=== PATIENT | female | born 1950 | race Caucasian/White ===

== ENCOUNTER → 2017-09-10 | Outpatient (CLI) | payer MEDICARE | END | disposition home or self-care (01) | LOC: SHCH 12:55 | PROVIDERS: ATTEND Internal Medicine Cardiovascular Disease | DX: R07.9 Chest pain, unspecified (principal); R78.5 Finding of other psychotropic drug in blood | CPT/HCPCS: 93306 ==

== ENCOUNTER → 2017-09-26 | Outpatient (CLI) | payer MEDICARE ==
[~2017-09-26] MED LIST: REGADENOSON 0.4 MG/5 ML PF SYG IVP SCH
== END | disposition home or self-care (01) ==
LOC: SHCH 08:47
PROVIDERS: ATTEND Internal Medicine Cardiovascular Disease
DX: R07.9 Chest pain, unspecified (principal)
CPT/HCPCS: 78452; 93017; 96374; A9500 ×2; J2785

== ENCOUNTER 2020-04-25 18:46 | Inpatient (IN) | payer MEDICARE ==
[~2020-04-25] VITALS: Ht 157.5 cm; Wt 55.2 kg
[2020-04-25 20:27] LABS: BASOPHILS % (AUTO) 0.1 % (0.0-5.0); HEMATOCRIT 38.8 % (36-48); LYMPHOCYTES % (AUTO) 5.3 % (21.0-51.0); MEAN CORPUSCULAR HEMOGLOBIN 30.3 pg (27.0-33.0); MEAN CORPUSCULAR HGB CONC 34.8 g/dL (32.0-36.0); MONOCYTES % (AUTO) 2.7 % (3.0-13.0); NEUTROPHILS % (AUTO) 90.5 % (40.0-77.0); PLATELET COUNT (AUTO) 133 K/uL (130-400); RED BLOOD CELL COUNT(AUTO) 4.46 MIL/uL (4.00-5.50); RED CELL DISTRIBUTION WIDTH 12.6 % (11.0-15.5); WHITE BLOOD COUNT (AUTO) 7.9 K/uL (4.8-10.8)
[2020-04-25 20:49] LABS: ALBUMIN 3.1 g/dL (3.5-5.0); BILIRUBIN,TOTAL 0.7 mg/dL (0.2-1.0); CREATININE 1.1 mg/dL (0.5-1.5); POTASSIUM 4.7 mmol/L (3.5-5.1); TOTAL PROTEIN, SERUM 8.3 g/dL (6.0-8.3)
[2020-04-25 21:01] LABS: CRP QUANTITATIVE 142.2 mg/L (0.00-9.0)
[2020-04-25] MEDS ORDERED: SODIUM CHLORIDE 0.9% 1000ML 1,000 ML IV SCH (22:15)
[2020-04-25] MEDS ORDERED: ERGOCALCIFEROL (VITAMIN D2) 50,000 UNIT CAPSULE PO ONE (22:15)
[2020-04-25] MEDS ORDERED: DOXYCYCLINE 100MG+NS 250ML IV SCH (22:15)
[2020-04-25] MEDS ORDERED: ONDANSETRON HCL 4 MG/2 ML VIAL IV PRN (22:15)
[2020-04-25] MEDS ORDERED: INSULIN HUMULIN R 100 UNIT/ML 3ML ONE ×2 (22:17→23:48)
[2020-04-25] MEDS ORDERED: DOXYCYCLINE 100MG+NS 250ML 250 ML IV ONE (22:42)
[2020-04-25] MEDS ORDERED: ERGOCALCIFEROL (VITAMIN D2) 50,000 UNIT CAPSULE ONE (22:42)
--- NOTE | 2020-04-26 00:10 | NUR ---
NEW ADMISSION RECEIVED REPORT FROM JENARO ROCK [phone]. Pt ARRIVED AT ROOM 412 VIA STRETCHER. Pt AAOx4. NO TELE PACK ORDERED. Pt IS MED-SURG. BR W/BRP WITH ASSIST IF NEEDED. CALLED RESPIRATORY FOR CONTINUOUS PULSE OXIMETER. Pt IS ON 4L VIA NE. PCR RESULTS PENDING. Pt STATES SHE TESTED POSITIVE ON 04/18/2020 W/ HER PCP. Pt DENIES ANY PAIN, DENIES SOB, STATES SHE FEELS BETTER WITH THE OXYGEN. CALL LIGHT WITHIN REACH. BED TO LOWEST LEVEL, SIDE RAILS UP x2.
[2020-04-26 00:20] VITALS: BP 163/78
[2020-04-26] MEDS ORDERED: METF-444 PO (01:16)
[2020-04-26] MEDS ORDERED: DEXA6TAB PO (01:18)
[2020-04-26] MEDS ORDERED: MV-M1TAB32 PO (01:19)
[2020-04-26] MEDS ORDERED: ZINC50TA64 PO (01:19)
[2020-04-26] MEDS ORDERED: CHOL500051 PO (01:22)
[2020-04-26] MEDS ORDERED: LEVO500T89 PO (01:24)
[2020-04-26] MEDS ORDERED: ROSU20TA31 PO (01:25)
[2020-04-26] MEDS ORDERED: IBUP-2784 PO (01:27)
[2020-04-26] MEDS ORDERED: DEXT15DR29 OP (01:28)
[2020-04-26] MEDS ORDERED: ASCO500W7 PO (01:29)
[2020-04-26] MEDS ORDERED: MAGN250T10 PO (01:31)
[2020-04-26] MEDS ORDERED: GUAI120015 PO (01:32)
[2020-04-26 04:05] VITALS: BP 120/58
[2020-04-26] MEDS: INSULIN HUMULIN R 100 UNIT/ML 3ML SQ SCH ×4 (06:17→20:40)
[2020-04-26 06:22] LABS: BASOPHILS % (AUTO) 0.1 % (0.0-5.0); HEMATOCRIT 37.6 % (36-48); LYMPHOCYTES % (AUTO) 9.1 % (21.0-51.0); MEAN CORPUSCULAR HEMOGLOBIN 30.1 pg (27.0-33.0); MEAN CORPUSCULAR HGB CONC 33.8 g/dL (32.0-36.0); MEAN CORPUSCULAR VOLUME 89.1 fL (79-99); MONOCYTES % (AUTO) 3.8 % (3.0-13.0); NEUTROPHILS % (AUTO) 85.3 % (40.0-77.0); PLATELET COUNT (AUTO) 139 K/uL (130-400); RED BLOOD CELL COUNT(AUTO) 4.22 MIL/uL (4.00-5.50); RED CELL DISTRIBUTION WIDTH 12.9 % (11.0-15.5); WHITE BLOOD COUNT (AUTO) 8.7 K/uL (4.8-10.8)
[2020-04-26 06:49] LABS: LACTATE DEHYDROGENASE 308 U/L (81-234)
[2020-04-26 08:00] VITALS: BP 114/62
[2020-04-26] MEDS: ZINC SULFATE 220 CAPSULE PO SCH (08:10)
[2020-04-26] MEDS: METHYLPREDNISOLONE SOD SUCC 40MG/ML 1ML IVP SCH ×3 (08:10→19:54)
[2020-04-26] MEDS: ASCORBIC ACID 500 MG TAB PO SCH (08:10)
[2020-04-26] MEDS: ENOXAPARIN SODIUM 40 MG/0.4 ML SYRINGE SQ SCH (08:11)
[2020-04-26] MEDS: ACETAMINOPHEN 325 MG TAB PO PRN ×2 (08:12→18:52)
[2020-04-26] MEDS ORDERED: ALBUTEROL INHALER 90MCG/INH IH PRN (08:30)
[2020-04-26] MEDS: DOXYCYCLINE HYCLATE 100 MG TABLET PO SCH ×2 (09:54→19:54)
[2020-04-26] MEDS: ACETYLCYSTEINE 600 MG CAPSULE PO SCH ×2 (09:55→19:54)
[2020-04-26 11:30] VITALS: BP 115/55
[2020-04-26] MEDS ORDERED: PHARMACY COMMUNICATION MISC SCH (13:00)
[2020-04-26] MEDS ORDERED: REMDESIVIR (EUA) 520 200 MG in SODIUM CHLORIDE 0.9% 250 ML IV ONE (15:00)
[2020-04-26] MEDS ORDERED: COMPOUND IV REFRIGERATED 1 EACH IVSOLN MISC PRN (15:00)
--- NOTE | 2020-04-26 15:40 | NUR ---
OSCAR NOTE/IA UNABLE TO SPEAK TO PATIENT IN ROOM, NEXT OF KIN CALLED, ETHAN MathewsTisha CORABERNABE REYNOLDS. PER SON, PATIENT LIVES ALONE, INDEPENDENT WITH ADLS, NO USE OF DME, WORKS, DRIVES, USE OF [facility] ON [address] AND FEELS SAFE FOR PATIENT TO RETURN TO HOME OR WITH HIM OR SISTER ONCE DISCHARGED AND STABLE. Addendum: 04/26/20 at 1735 by ANA M RUDD RN CM Amended: Links added.
[2020-04-26 16:00] VITALS: BP 140/57
[2020-04-26 20:28] VITALS: BP 133/67
[2020-04-27 00:01] VITALS: BP 131/73
--- NOTE | 2020-04-27 02:41 | NUR ---
PLASMA PENDING SPOKE TO CLARITZA AT BLOOD BANK, Pt DOES NOT HAVE A PATIENT CODE. NOTIFIED JENARO DANIEL CHARGE NURSE AND JENARO SALTER CHARGE NURSE. EMELY DIRECTOR OF OCCUPATIONAL HEALTH WILL BE NOTIFIED IN THE MORNING. CONSENT AND [facility] [place] CONSENT WERE SIGNED.
[2020-04-27 04:02] VITALS: BP 129/64
[2020-04-27 04:34] LABS: BASOPHILS % (AUTO) 0.2 % (0.0-5.0); HEMATOCRIT 37.4 % (36-48); LYMPHOCYTES % (AUTO) 7.2 % (21.0-51.0); MEAN CORPUSCULAR HEMOGLOBIN 30.4 pg (27.0-33.0); MEAN CORPUSCULAR HGB CONC 34.5 g/dL (32.0-36.0); MONOCYTES % (AUTO) 2.7 % (3.0-13.0); NEUTROPHILS % (AUTO) 87.9 % (40.0-77.0); PLATELET COUNT (AUTO) 93 K/uL (130-400); RED BLOOD CELL COUNT(AUTO) 4.25 MIL/uL (4.00-5.50); RED CELL DISTRIBUTION WIDTH 12.8 % (11.0-15.5); WHITE BLOOD COUNT (AUTO) 12.1 K/uL (4.8-10.8)
[2020-04-27 04:49] LABS: ALBUMIN 2.5 g/dL (3.5-5.0); BILIRUBIN,DIRECT 0.1 mg/dL (0.0-0.3); BILIRUBIN,TOTAL 0.5 mg/dL (0.2-1.0); CREATININE 0.3 mg/dL (0.5-1.5); CRP QUANTITATIVE 120.1 mg/L (0.00-9.0); TOTAL PROTEIN, SERUM 7.4 g/dL (6.0-8.3)
[2020-04-27] MEDS: PHARMACY COMMUNICATION MISC SCH (06:00)
[2020-04-27] MEDS: INSULIN HUMULIN R 100 UNIT/ML 3ML SQ SCH ×7 (06:16→21:25)
[2020-04-27 08:00] VITALS: BP 135/69
[2020-04-27] MEDS: ASCORBIC ACID 500 MG TAB PO SCH (09:41)
[2020-04-27] MEDS: DOXYCYCLINE HYCLATE 100 MG TABLET PO SCH ×2 (09:41→20:56)
[2020-04-27] MEDS: ENOXAPARIN SODIUM 40 MG/0.4 ML SYRINGE SQ SCH (09:42)
[2020-04-27] MEDS: METHYLPREDNISOLONE SOD SUCC 40MG/ML 1ML IVP SCH ×3 (09:42→20:56)
[2020-04-27] MEDS: ZINC SULFATE 220 CAPSULE PO SCH (09:42)
[2020-04-27] MEDS: ACETYLCYSTEINE 600 MG CAPSULE PO SCH ×2 (10:47→20:56)
[2020-04-27 11:30] VITALS: BP 143/66
[2020-04-27 15:30] VITALS: BP 135/70
[2020-04-27] MEDS: REMDESIVIR (EUA) 520 100 MG in SODIUM CHLORIDE 0.9% 250 ML IV SCH (15:38)
[2020-04-27] MEDS: ACETAMINOPHEN 325 MG TAB PO PRN ×2 (17:47→18:56)
[2020-04-27 20:00] VITALS: BP 138/69
--- NOTE | 2020-04-27 20:00 | NUR ---
assessment note patient awake ,alert, ox3, oxygen at 4 l n/c saturation 93 %, extensive discussion regarding plan of care and expected outcome, patient verbalizes understanding via teach back , patient verbalizes understanding via teach back
[2020-04-27] MEDS: INSULIN GLARGINE 100 UNITS/ML 10 ML VIAL SQ SCH (21:24)
[2020-04-28] VITALS: BP 145/70
[2020-04-28 04:00] VITALS: BP 143/61
[2020-04-28] MEDS: PHARMACY COMMUNICATION MISC SCH (04:28)
[2020-04-28 04:33] LABS: BASOPHILS % (AUTO) 0.2 % (0.0-5.0); HEMATOCRIT 37.2 % (36-48); LYMPHOCYTES % (AUTO) 9.4 % (21.0-51.0); MEAN CORPUSCULAR HEMOGLOBIN 29.8 pg (27.0-33.0); MEAN CORPUSCULAR HGB CONC 34.1 g/dL (32.0-36.0); MEAN CORPUSCULAR VOLUME 87.3 fL (79-99); MONOCYTES % (AUTO) 3.3 % (3.0-13.0); NEUTROPHILS % (AUTO) 84.9 % (40.0-77.0); PLATELET COUNT (AUTO) 45 K/uL (130-400); RED BLOOD CELL COUNT(AUTO) 4.26 MIL/uL (4.00-5.50); RED CELL DISTRIBUTION WIDTH 12.7 % (11.0-15.5); WHITE BLOOD COUNT (AUTO) 10.4 K/uL (4.8-10.8)
[2020-04-28 05:30] LABS: ALBUMIN 2.3 g/dL (3.5-5.0); BILIRUBIN,DIRECT 0.1 mg/dL (0.0-0.3); BILIRUBIN,TOTAL 0.4 mg/dL (0.2-1.0); CREATININE 0.6 mg/dL (0.5-1.5); CRP QUANTITATIVE 59.8 mg/L (0.00-9.0); TOTAL PROTEIN, SERUM 6.9 g/dL (6.0-8.3)
[2020-04-28] MEDS: INSULIN HUMULIN R 100 UNIT/ML 3ML SQ SCH ×7 (06:04→21:34)
[2020-04-28] MEDS: ACETAMINOPHEN 325 MG TAB PO PRN ×2 (06:42→20:22)
[2020-04-28] MEDS: ENOXAPARIN SODIUM 40 MG/0.4 ML SYRINGE SQ SCH (07:12)
[2020-04-28 08:11] VITALS: BP 136/75
[2020-04-28] MEDS: ACETYLCYSTEINE 600 MG CAPSULE PO SCH ×2 (09:00→20:15)
[2020-04-28 09:37] LABS: CREATININE 0.7 mg/dL (0.5-1.5)
[2020-04-28] MEDS: DOXYCYCLINE HYCLATE 100 MG TABLET PO SCH ×2 (10:18→20:15)
[2020-04-28] MEDS: ASCORBIC ACID 500 MG TAB PO SCH (10:18)
[2020-04-28] MEDS: ZINC SULFATE 220 CAPSULE PO SCH (10:18)
[2020-04-28] MEDS: METHYLPREDNISOLONE SOD SUCC 40MG/ML 1ML IVP SCH ×3 (10:21→20:15)
[2020-04-28 12:27] VITALS: BP 132/61
[2020-04-28] MEDS: REMDESIVIR (EUA) 520 100 MG in SODIUM CHLORIDE 0.9% 250 ML IV SCH (16:15)
[2020-04-28 16:43] VITALS: BP 128/68
--- NOTE | 2020-04-28 18:13 | NUR ---
pt stated she feels better today, pt able to amb to bathroom, without getting SOB, pt sao2 remained @ 89-95% today on o2 @ 6L, pt received instructions from RT today, regarding proper use of incentive spirometer, pt verbalized understanding ofhow to use IS. PLAN IS FOR PT TO CONTINUE TO RECEIVE REMDESIVIR and for pt to receive convalescent plasma. once pt is medically stable, pt will be dcd home
[2020-04-28 20:20] VITALS: BP 185/79
--- NOTE | 2020-04-28 21:00 | NUR ---
bs blood sugar by finger stick 407, stat glucose ordered per protocal, result 390, teach patient plan of care and expected outcome, oxygen at 4 l n/c, saturation 97 % at this time,patient verbalizes understanding via teach back
--- NOTE | 2020-04-28 21:15 | NUR ---
plasma 2nd unit of plasma started as ordered via right hand 20 gauge catheter, tolerating well, see transfusion record
--- NOTE | 2020-04-28 21:30 | NUR ---
nursing obs no reaction noted, temp 97.6 f pulse 72 resp 20 b/p 144/90, tolerating well
[2020-04-28] MEDS: INSULIN GLARGINE 100 UNITS/ML 10 ML VIAL SQ SCH (21:35)
--- NOTE | 2020-04-28 22:15 | NUR ---
nursing obs plasma transfusion complete, no reaction noted , tolerated well, see transfusion record
[2020-04-29] MEDS: PHARMACY COMMUNICATION MISC SCH (00:06)
[2020-04-29 00:20] VITALS: BP 145/73
[2020-04-29 04:20] VITALS: BP 149/76
[2020-04-29] MEDS: INSULIN HUMULIN R 100 UNIT/ML 3ML SQ SCH ×7 (05:58→20:54)
[2020-04-29 06:36] LABS: CREATININE 0.7 mg/dL (0.5-1.5); POTASSIUM 3.7 mmol/L (3.5-5.1)
[2020-04-29 06:37] LABS: BASOPHILS % (AUTO) 0.2 % (0.0-5.0); HEMATOCRIT 36.9 % (36-48); LYMPHOCYTES % (AUTO) 9.6 % (21.0-51.0); MEAN CORPUSCULAR HEMOGLOBIN 30.1 pg (27.0-33.0); MEAN CORPUSCULAR HGB CONC 34.1 g/dL (32.0-36.0); MEAN CORPUSCULAR VOLUME 88.3 fL (79-99); MONOCYTES % (AUTO) 2.5 % (3.0-13.0); NEUTROPHILS % (AUTO) 85.2 % (40.0-77.0); RED BLOOD CELL COUNT(AUTO) 4.18 MIL/uL (4.00-5.50); RED CELL DISTRIBUTION WIDTH 12.8 % (11.0-15.5); WHITE BLOOD COUNT (AUTO) 9.1 K/uL (4.8-10.8)
[2020-04-29 07:48] VITALS: BP 152/71
[2020-04-29] MEDS: METHYLPREDNISOLONE SOD SUCC 40MG/ML 1ML IVP SCH ×3 (08:35→20:15)
[2020-04-29] MEDS: ENOXAPARIN SODIUM 40 MG/0.4 ML SYRINGE SQ SCH (08:36)
[2020-04-29] MEDS: ASCORBIC ACID 500 MG TAB PO SCH (08:37)
[2020-04-29] MEDS: DOXYCYCLINE HYCLATE 100 MG TABLET PO SCH ×2 (08:37→20:15)
[2020-04-29] MEDS: ZINC SULFATE 220 CAPSULE PO SCH (08:37)
[2020-04-29] MEDS: ACETYLCYSTEINE 600 MG CAPSULE PO SCH ×2 (08:37→20:20)
[2020-04-29 09:00] LABS: PLATELET COUNT (AUTO) 199 K/uL (130-400)
[2020-04-29 12:02] VITALS: BP 144/69
[2020-04-29] MEDS: REMDESIVIR (EUA) 520 100 MG in SODIUM CHLORIDE 0.9% 250 ML IV SCH (15:17)
[2020-04-29 15:25] VITALS: BP 121/64
[2020-04-29 20:20] VITALS: BP 154/78
[2020-04-29] MEDS: INSULIN GLARGINE 100 UNITS/ML 10 ML VIAL SQ SCH (20:53)
[2020-04-29] MEDS: ACETAMINOPHEN 325 MG TAB PO PRN (20:56)
[2020-04-30 00:20] VITALS: BP 149/59
[2020-04-30 04:20] VITALS: BP 126/60
[2020-04-30] MEDS: PHARMACY COMMUNICATION MISC SCH (06:00)
[2020-04-30] MEDS: INSULIN HUMULIN R 100 UNIT/ML 3ML SQ SCH ×7 (06:07→20:25)
[2020-04-30 06:13] LABS: BASOPHILS % (AUTO) 0.2 % (0.0-5.0); HEMATOCRIT 36.7 % (36-48); MEAN CORPUSCULAR HEMOGLOBIN 29.9 pg (27.0-33.0); MEAN CORPUSCULAR HGB CONC 34.3 g/dL (32.0-36.0); MEAN CORPUSCULAR VOLUME 87.2 fL (79-99); MONOCYTES % (AUTO) 2.1 % (3.0-13.0); NEUTROPHILS % (AUTO) 87.9 % (40.0-77.0); RED BLOOD CELL COUNT(AUTO) 4.21 MIL/uL (4.00-5.50); RED CELL DISTRIBUTION WIDTH 12.7 % (11.0-15.5); WHITE BLOOD COUNT (AUTO) 12.5 K/uL (4.8-10.8)
[2020-04-30 06:19] LABS: PLATELET COUNT (AUTO) 174 K/uL (130-400)
[2020-04-30 06:48] LABS: CREATININE 0.7 mg/dL (0.5-1.5); POTASSIUM 3.4 mmol/L (3.5-5.1)
[2020-04-30 07:46] VITALS: BP 136/65
[2020-04-30] MEDS: ACETYLCYSTEINE 600 MG CAPSULE PO SCH ×2 (09:00→20:23)
[2020-04-30] MEDS: ASCORBIC ACID 500 MG TAB PO SCH (09:02)
[2020-04-30] MEDS: METHYLPREDNISOLONE SOD SUCC 40MG/ML 1ML IVP SCH ×3 (09:02→20:23)
[2020-04-30] MEDS: ZINC SULFATE 220 CAPSULE PO SCH (09:02)
[2020-04-30] MEDS: ENOXAPARIN SODIUM 40 MG/0.4 ML SYRINGE SQ SCH (09:03)
[2020-04-30] MEDS: DOXYCYCLINE HYCLATE 100 MG TABLET PO SCH ×2 (09:03→20:23)
[2020-04-30] MEDS: ACETAMINOPHEN 325 MG TAB PO PRN (09:18)
[2020-04-30 12:00] VITALS: BP 122/65
[2020-04-30] MEDS: REMDESIVIR (EUA) 520 100 MG in SODIUM CHLORIDE 0.9% 250 ML IV SCH (14:35)
[2020-04-30 16:12] VITALS: BP 127/59
[2020-04-30 20:24] VITALS: BP 117/56
[2020-04-30] MEDS: INSULIN GLARGINE 100 UNITS/ML 10 ML VIAL SQ SCH (20:24)
[2020-05-01] VITALS (7 sets, daily range): BP systolic 112–155; BP diastolic 52–73
[2020-05-01] MEDS: ACETAMINOPHEN 325 MG TAB PO PRN ×3 (00:18→14:37)
[2020-05-01] MEDS: PHARMACY COMMUNICATION MISC SCH (05:14)
[2020-05-01] MEDS: INSULIN HUMULIN R 100 UNIT/ML 3ML SQ SCH ×7 (06:43→20:48)
[2020-05-01 06:55] LABS: BASOPHILS % (AUTO) 0.2 % (0.0-5.0); HEMATOCRIT 33.8 % (36-48); MEAN CORPUSCULAR HEMOGLOBIN 30.3 pg (27.0-33.0); MEAN CORPUSCULAR HGB CONC 34.3 g/dL (32.0-36.0); MEAN CORPUSCULAR VOLUME 88.3 fL (79-99); MONOCYTES % (AUTO) 1.6 % (3.0-13.0); NEUTROPHILS % (AUTO) 91.1 % (40.0-77.0); PLATELET COUNT (AUTO) 194 K/uL (130-400); RED BLOOD CELL COUNT(AUTO) 3.83 MIL/uL (4.00-5.50); RED CELL DISTRIBUTION WIDTH 12.9 % (11.0-15.5); WHITE BLOOD COUNT (AUTO) 11.4 K/uL (4.8-10.8)
[2020-05-01 06:58] LABS: CREATININE 0.7 mg/dL (0.5-1.5)
[2020-05-01] MEDS: ASCORBIC ACID 500 MG TAB PO SCH (09:53)
[2020-05-01] MEDS: METHYLPREDNISOLONE SOD SUCC 40MG/ML 1ML IVP SCH ×3 (09:53→20:46)
[2020-05-01] MEDS: DOXYCYCLINE HYCLATE 100 MG TABLET PO SCH ×2 (09:54→20:46)
[2020-05-01] MEDS: ENOXAPARIN SODIUM 40 MG/0.4 ML SYRINGE SQ SCH (09:54)
[2020-05-01] MEDS: ZINC SULFATE 220 CAPSULE PO SCH (09:54)
[2020-05-01] MEDS: ACETYLCYSTEINE 600 MG CAPSULE PO SCH ×2 (11:15→20:46)
--- NOTE | 2020-05-01 11:55 | NUR ---
0810-after returning to bathroom, oxygen probe began alarming sat 80's, rt notified, encouraged deep breathing/cough & incentive spirometer use; up to 85%, labored sitting up high fowlers, rt notified; stated to wait 10 min then call again if no change, [id number] rt for eval, no change in orders; encouraged to pause when speaking, bedside commode instead of too much walking and causing oxygen to decrease. verbalized understanding. 1000-speaking with nurse, and then family right after & o2 sat again began to dip; encouraged a pause, and slow deep breaths, cont pulse ox. 1130-proning per self, o2 sat 94-97% on 6 liters.
--- NOTE | 2020-05-01 17:04 | NUR ---
1500 Patient utilizing bedside commode, urine x1/stool x1, tolerated oxygen decrease better; nad noted, cont pulse ox cont, patient breathing better through nose/mouth, will cont to monitor.
[2020-05-01] MEDS: INSULIN GLARGINE 100 UNITS/ML 10 ML VIAL SQ SCH (20:47)
[2020-05-02 03:49] VITALS: BP 117/55
[2020-05-02 04:46] LABS: BASOPHILS % (AUTO) 0.1 % (0.0-5.0); HEMATOCRIT 36.5 % (36-48); LYMPHOCYTES % (AUTO) 3.5 % (21.0-51.0); MEAN CORPUSCULAR HEMOGLOBIN 30.1 pg (27.0-33.0); MEAN CORPUSCULAR HGB CONC 34.5 g/dL (32.0-36.0); MEAN CORPUSCULAR VOLUME 87.1 fL (79-99); MONOCYTES % (AUTO) 1.1 % (3.0-13.0); NEUTROPHILS % (AUTO) 94.2 % (40.0-77.0); RED BLOOD CELL COUNT(AUTO) 4.19 MIL/uL (4.00-5.50); WHITE BLOOD COUNT (AUTO) 12.9 K/uL (4.8-10.8)
[2020-05-02 04:49] LABS: PLATELET COUNT (AUTO) 140 K/uL (130-400)
[2020-05-02 05:08] LABS: CREATININE 0.7 mg/dL (0.5-1.5); POTASSIUM 3.8 mmol/L (3.5-5.1)
[2020-05-02] MEDS: INSULIN HUMULIN R 100 UNIT/ML 3ML SQ SCH ×7 (06:40→22:01)
[2020-05-02] MEDS: ACETYLCYSTEINE 600 MG CAPSULE PO SCH ×2 (08:10→21:00)
[2020-05-02] MEDS: ZINC SULFATE 220 CAPSULE PO SCH (08:10)
[2020-05-02] MEDS: ASCORBIC ACID 500 MG TAB PO SCH (08:10)
[2020-05-02] MEDS: DOXYCYCLINE HYCLATE 100 MG TABLET PO SCH ×2 (08:10→21:39)
[2020-05-02] MEDS: ENOXAPARIN SODIUM 40 MG/0.4 ML SYRINGE SQ SCH (08:11)
[2020-05-02] MEDS: METHYLPREDNISOLONE SOD SUCC 40MG/ML 1ML IVP SCH ×3 (08:18→21:39)
[2020-05-02 08:30] VITALS: BP 118/57
[2020-05-02 12:05] VITALS: BP 139/66
[2020-05-02 16:36] VITALS: BP 112/57
[2020-05-02 20:49] VITALS: BP 136/70
[2020-05-02] MEDS: INSULIN GLARGINE 100 UNITS/ML 10 ML VIAL SQ SCH (21:44)
[2020-05-02 23:59] VITALS: BP 136/75
[2020-05-03 03:56] VITALS: BP 139/73
[2020-05-03] MEDS: INSULIN HUMULIN R 100 UNIT/ML 3ML SQ SCH ×7 (05:41→21:23)
[2020-05-03 06:10] LABS: BASOPHILS % (AUTO) 0.1 % (0.0-5.0); EOSINOPHILS % (AUTO) 0.1 % (0.0-8.0); LYMPHOCYTES % (AUTO) 6.4 % (21.0-51.0); MEAN CORPUSCULAR HEMOGLOBIN 30.3 pg (27.0-33.0); MEAN CORPUSCULAR HGB CONC 34.3 g/dL (32.0-36.0); MEAN CORPUSCULAR VOLUME 88.5 fL (79-99); MONOCYTES % (AUTO) 0.5 % (3.0-13.0); NEUTROPHILS % (AUTO) 91.9 % (40.0-77.0); PLATELET COUNT (AUTO) 67 K/uL (130-400); RED BLOOD CELL COUNT(AUTO) 4.52 MIL/uL (4.00-5.50); RED CELL DISTRIBUTION WIDTH 13.1 % (11.0-15.5); WHITE BLOOD COUNT (AUTO) 13.4 K/uL (4.8-10.8)
[2020-05-03 06:43] LABS: ALANINE AMINOTRANSFERASE 35 U/L (12-78); ALBUMIN 2.3 g/dL (3.5-5.0); ASPARTATE AMINOTRANSFERASE 18 U/L (10-37); BILIRUBIN,TOTAL 0.7 mg/dL (0.2-1.0); CARBON DIOXIDE 29 mmol/L (21-32); CHLORIDE 103 mmol/L (101-111); CREATININE 0.8 mg/dL (0.5-1.5); GLOMERULAR FILTR. RATE CALC 75 mL/min (>60); GLUCOSE,RANDOM 104 mg/dL (70-105); LACTATE DEHYDROGENASE 372 U/L (81-234); POTASSIUM 3.7 mmol/L (3.5-5.1); SODIUM SERUM 140 mmol/L (136-145); UREA NITROGEN, BLOOD 22 mg/dL (7-18)
[2020-05-03 08:36] VITALS: BP 96/42
[2020-05-03] MEDS: DOXYCYCLINE HYCLATE 100 MG TABLET PO SCH ×2 (10:11→21:22)
[2020-05-03] MEDS: ASCORBIC ACID 500 MG TAB PO SCH (10:11)
[2020-05-03] MEDS: ZINC SULFATE 220 CAPSULE PO SCH (10:11)
[2020-05-03] MEDS: ENOXAPARIN SODIUM 40 MG/0.4 ML SYRINGE SQ SCH (10:12)
[2020-05-03] MEDS: METHYLPREDNISOLONE SOD SUCC 40MG/ML 1ML IVP SCH ×3 (10:12→21:21)
[2020-05-03 10:23] VITALS: BP 121/56
[2020-05-03] MEDS ORDERED: COLCHICINE 0.6 MG TABLET PO SCH (11:15)
[2020-05-03] MEDS: ACETAMINOPHEN 325 MG TAB PO PRN (11:28)
[2020-05-03] MEDS: ACETYLCYSTEINE 20% 200MG/ML 4ML VIAL PO SCH ×2 (11:38→21:22)
[2020-05-03 12:11] VITALS: BP 97/53
--- NOTE | 2020-05-03 13:45 | NUR ---
RDSCREEN - LOS X 8 Pt admitted with ARF, COVID-19. History of DM, HLD. Pt tolerating 75gm CCD with no report of GI distress, good PO intake at 100%. WBC 13.4, Alb 2.3, CRP 104.70, LDH 372, BUN 22. Vitamin C, Zinc, DM medications in place. Recommend 60mL ProMod QD Recommend Free water intake 1800-2000mL/day Recommend continue 75gm CCD RD to continue to monitor. Please notify as additional nutrition concerns arise. Thank you. Addendum: 05/03/20 at [address] RD Amended: Links added.
[2020-05-03] MEDS: COLCHICINE 0.6 MG TABLET PO SCH ×2 (16:25→21:21)
[2020-05-03 16:50] VITALS: BP 98/41
[2020-05-03 18:04] LABS: BASOPHILS % (AUTO) 0.1 % (0.0-5.0); EOSINOPHILS % (AUTO) 0.1 % (0.0-8.0); LYMPHOCYTES % (AUTO) 1.7 % (21.0-51.0); MEAN CORPUSCULAR HEMOGLOBIN 30.5 pg (27.0-33.0); MEAN CORPUSCULAR HGB CONC 34.4 g/dL (32.0-36.0); MEAN CORPUSCULAR VOLUME 88.7 fL (79-99); MONOCYTES % (AUTO) 0.9 % (3.0-13.0); NEUTROPHILS % (AUTO) 96.5 % (40.0-77.0); PLATELET COUNT (AUTO) 142 K/uL (130-400); RED BLOOD CELL COUNT(AUTO) 4.06 MIL/uL (4.00-5.50); RED CELL DISTRIBUTION WIDTH 13.1 % (11.0-15.5); WHITE BLOOD COUNT (AUTO) 13.2 K/uL (4.8-10.8)
[2020-05-03 19:00] VITALS: BP 123/47
[2020-05-03] MEDS: INSULIN GLARGINE 100 UNITS/ML 10 ML VIAL SQ SCH (21:24)
[2020-05-04] VITALS: BP 118/66
[2020-05-04 03:56] VITALS: BP 106/52
[2020-05-04 05:19] LABS: HEMATOCRIT 37.2 % (36-48); LYMPHOCYTES % (AUTO) 3.1 % (21.0-51.0); MEAN CORPUSCULAR HEMOGLOBIN 30.4 pg (27.0-33.0); MEAN CORPUSCULAR HGB CONC 34.4 g/dL (32.0-36.0); MEAN CORPUSCULAR VOLUME 88.4 fL (79-99); MONOCYTES % (AUTO) 0.6 % (3.0-13.0); NEUTROPHILS % (AUTO) 95.7 % (40.0-77.0); PLATELET COUNT (AUTO) 121 K/uL (130-400); RED BLOOD CELL COUNT(AUTO) 4.21 MIL/uL (4.00-5.50); RED CELL DISTRIBUTION WIDTH 13.1 % (11.0-15.5); WHITE BLOOD COUNT (AUTO) 9.4 K/uL (4.8-10.8)
[2020-05-04 05:58] LABS: ALBUMIN 1.9 g/dL (3.5-5.0); BILIRUBIN,TOTAL 0.8 mg/dL (0.2-1.0); CREATININE 0.7 mg/dL (0.5-1.5); TOTAL PROTEIN, SERUM 6.7 g/dL (6.0-8.3)
[2020-05-04 06:11] LABS: CRP QUANTITATIVE 319.2 mg/L (0.00-9.0)
[2020-05-04] MEDS: INSULIN HUMULIN R 100 UNIT/ML 3ML SQ SCH ×7 (06:18→22:36)
[2020-05-04 08:46] VITALS: BP 101/57
[2020-05-04] MEDS: ACETYLCYSTEINE 20% 200MG/ML 4ML VIAL PO SCH ×2 (10:37→22:47)
[2020-05-04] MEDS: COLCHICINE 0.6 MG TABLET PO SCH ×2 (10:37→22:44)
[2020-05-04] MEDS: ASCORBIC ACID 500 MG TAB PO SCH (10:37)
[2020-05-04] MEDS: DOXYCYCLINE HYCLATE 100 MG TABLET PO SCH ×2 (10:37→22:45)
[2020-05-04] MEDS: ENOXAPARIN SODIUM 40 MG/0.4 ML SYRINGE SQ SCH ×2 (10:38→22:51)
[2020-05-04] MEDS: ZINC SULFATE 220 CAPSULE PO SCH (10:38)
[2020-05-04] MEDS: METHYLPREDNISOLONE SOD SUCC 40MG/ML 1ML IVP SCH (10:43)
[2020-05-04 12:31] VITALS: BP 105/50
[2020-05-04 15:41] LABS: BASOPHILS % (AUTO) 0.1 % (0.0-5.0); HEMATOCRIT 35.7 % (36-48); LYMPHOCYTES % (AUTO) 1.8 % (21.0-51.0); MEAN CORPUSCULAR HEMOGLOBIN 30.3 pg (27.0-33.0); MEAN CORPUSCULAR HGB CONC 34.2 g/dL (32.0-36.0); MEAN CORPUSCULAR VOLUME 88.8 fL (79-99); MONOCYTES % (AUTO) 0.7 % (3.0-13.0); NEUTROPHILS % (AUTO) 96.5 % (40.0-77.0); PLATELET COUNT (AUTO) 141 K/uL (130-400); RED BLOOD CELL COUNT(AUTO) 4.02 MIL/uL (4.00-5.50); RED CELL DISTRIBUTION WIDTH 13.1 % (11.0-15.5); WHITE BLOOD COUNT (AUTO) 12.1 K/uL (4.8-10.8)
[2020-05-04] MEDS: CEFTRIAXONE SODIUM 1 GM IVP SCH (16:04)
[2020-05-04 16:35] VITALS: BP 115/57
[2020-05-04] MEDS: DEXAMETHASONE SOD PHOSPHATE 10MG/ML 1ML VIAL IVP SCH (17:27)
--- NOTE | 2020-05-04 19:57 | NUR ---
Received the patient Received the patient A/o x3 lying awake in bed with 02 on. Patient is in no acute distress at this time and has no complaints of pain or discomforts. Plan of care and safety precautions reviewed with patient an patient verbalized understanding. Bed in lowest position, 2 side rails up, wheels locked, and bed alarm on. Patient's personal items and call light are within reach. Will continue with plan of care.
[2020-05-04 20:00] VITALS: BP 133/69
[2020-05-04] MEDS: INSULIN GLARGINE 100 UNITS/ML 10 ML VIAL SQ SCH (22:38)
[2020-05-05] VITALS (7 sets, daily range): BP systolic 119–166; BP diastolic 51–72
[2020-05-05] MEDS: CEFTRIAXONE SODIUM 1 GM IVP SCH ×2 (03:35→15:42)
[2020-05-05] MEDS: DEXAMETHASONE SOD PHOSPHATE 10MG/ML 1ML VIAL IVP SCH ×4 (03:35→17:36)
[2020-05-05 04:32] LABS: BASOPHILS % (AUTO) 0.1 % (0.0-5.0); HEMATOCRIT 35.2 % (36-48); LYMPHOCYTES % (AUTO) 2.5 % (21.0-51.0); MEAN CORPUSCULAR HEMOGLOBIN 30.2 pg (27.0-33.0); MEAN CORPUSCULAR HGB CONC 34.1 g/dL (32.0-36.0); MEAN CORPUSCULAR VOLUME 88.7 fL (79-99); MONOCYTES % (AUTO) 1.3 % (3.0-13.0); NEUTROPHILS % (AUTO) 95.3 % (40.0-77.0); PLATELET COUNT (AUTO) 92 K/uL (130-400); RED BLOOD CELL COUNT(AUTO) 3.97 MIL/uL (4.00-5.50); RED CELL DISTRIBUTION WIDTH 13.2 % (11.0-15.5)
[2020-05-05 04:50] LABS: ALBUMIN 1.8 g/dL (3.5-5.0); BILIRUBIN,TOTAL 0.5 mg/dL (0.2-1.0); CREATININE 0.6 mg/dL (0.5-1.5); CRP QUANTITATIVE 126.1 mg/L (0.00-9.0); POTASSIUM 4.1 mmol/L (3.5-5.1); TOTAL PROTEIN, SERUM 6.2 g/dL (6.0-8.3)
[2020-05-05] MEDS: INSULIN HUMULIN R 100 UNIT/ML 3ML SQ SCH ×7 (08:47→20:07)
[2020-05-05] MEDS: ENOXAPARIN SODIUM 40 MG/0.4 ML SYRINGE SQ SCH ×2 (09:00→20:12)
[2020-05-05] MEDS: ASCORBIC ACID 500 MG TAB PO SCH (10:23)
[2020-05-05] MEDS: ACETYLCYSTEINE 20% 200MG/ML 4ML VIAL PO SCH ×2 (10:23→20:13)
[2020-05-05] MEDS: ZINC SULFATE 220 CAPSULE PO SCH (10:23)
[2020-05-05] MEDS: COLCHICINE 0.6 MG TABLET PO SCH ×2 (10:23→20:12)
[2020-05-05] MEDS: DOXYCYCLINE HYCLATE 100 MG TABLET PO SCH ×2 (10:23→20:12)
[2020-05-05 16:08] LABS: BASOPHILS % (AUTO) 0.1 % (0.0-5.0); HEMATOCRIT 36.3 % (36-48); LYMPHOCYTES % (AUTO) 2.1 % (21.0-51.0); MEAN CORPUSCULAR HEMOGLOBIN 30.4 pg (27.0-33.0); MEAN CORPUSCULAR HGB CONC 33.9 g/dL (32.0-36.0); MEAN CORPUSCULAR VOLUME 89.6 fL (79-99); MONOCYTES % (AUTO) 1.1 % (3.0-13.0); NEUTROPHILS % (AUTO) 96.1 % (40.0-77.0); PLATELET COUNT (AUTO) 156 K/uL (130-400); RED BLOOD CELL COUNT(AUTO) 4.05 MIL/uL (4.00-5.50); WHITE BLOOD COUNT (AUTO) 10.2 K/uL (4.8-10.8)
[2020-05-05] MEDS: INSULIN GLARGINE 100 UNITS/ML 10 ML VIAL SQ SCH (20:09)
[2020-05-06] MEDS: CEFTRIAXONE SODIUM 1 GM IVP SCH ×2 (02:54→14:53)
[2020-05-06 03:43] VITALS: BP 134/71
[2020-05-06] MEDS: DEXAMETHASONE SOD PHOSPHATE 10MG/ML 1ML VIAL IVP SCH ×2 (06:00→10:09)
--- NOTE | 2020-05-06 07:01 | NUR ---
0605: No dexamethasone inhouse. Checked other [employer] also. Pharmacist called pending delivery. Patient is in stable condition.
[2020-05-06 07:05] LABS: BASOPHILS % (AUTO) 0.1 % (0.0-5.0); HEMATOCRIT 34.1 % (36-48); LYMPHOCYTES % (AUTO) 4.1 % (21.0-51.0); MEAN CORPUSCULAR HEMOGLOBIN 30.6 pg (27.0-33.0); MEAN CORPUSCULAR HGB CONC 34.6 g/dL (32.0-36.0); MEAN CORPUSCULAR VOLUME 88.3 fL (79-99); MONOCYTES % (AUTO) 2.8 % (3.0-13.0); NEUTROPHILS % (AUTO) 92.5 % (40.0-77.0); PLATELET COUNT (AUTO) 106 K/uL (130-400); RED BLOOD CELL COUNT(AUTO) 3.86 MIL/uL (4.00-5.50); WHITE BLOOD COUNT (AUTO) 9.3 K/uL (4.8-10.8)
[2020-05-06] MEDS: INSULIN HUMULIN R 100 UNIT/ML 3ML SQ SCH ×7 (07:30→21:19)
[2020-05-06 07:36] LABS: ALBUMIN 1.7 g/dL (3.5-5.0); BILIRUBIN,TOTAL 0.4 mg/dL (0.2-1.0); CREATININE 0.6 mg/dL (0.5-1.5); POTASSIUM 4.1 mmol/L (3.5-5.1); TOTAL PROTEIN, SERUM 5.8 g/dL (6.0-8.3)
[2020-05-06 08:00] VITALS: BP 131/60
--- NOTE | 2020-05-06 08:00 | NUR ---
PATIENT UP TO BEDSIDE COMMODE CALLING OUT FOR HELP, PATIENT PALE, REPORTS DIFFICULTY BREATHING. O2 SATS 52% WITH NON REBREATHER 15L. ASSISTED PATIENT BACK TO BED, ASSISTED HER TO PRONE POSITION, O2 SATS SLOWLY RECOVERED TO 98%, PATIENT REPORTS SHE FEELS BETTER AFTER REST PERIOD. PATIENT INSTRUCTED NOT TO GET UP ANYMORE TO BEDSIDE COMMODE, WE WILL ASSIST WITH BEDPAN.
[2020-05-06] MEDS: ACETYLCYSTEINE 20% 200MG/ML 4ML VIAL PO SCH ×2 (10:10→20:31)
[2020-05-06] MEDS: COLCHICINE 0.6 MG TABLET PO SCH ×2 (10:10→20:31)
[2020-05-06] MEDS: ENOXAPARIN SODIUM 40 MG/0.4 ML SYRINGE SQ SCH ×2 (10:10→20:30)
[2020-05-06] MEDS: ASCORBIC ACID 500 MG TAB PO SCH (10:10)
[2020-05-06] MEDS: ZINC SULFATE 220 CAPSULE PO SCH (10:10)
[2020-05-06] MEDS: DOXYCYCLINE HYCLATE 100 MG TABLET PO SCH (10:10)
[2020-05-06 11:21] VITALS: BP 123/67
[2020-05-06] MEDS ORDERED: DEXAMETHASONE SOD PHOSPHATE 10MG/ML 1ML VIAL IVP SCH (14:00)
[2020-05-06 16:00] VITALS: BP 138/75
[2020-05-06 20:55] VITALS: BP 139/80
[2020-05-06] MEDS: INSULIN GLARGINE 100 UNITS/ML 10 ML VIAL SQ SCH (21:21)
[2020-05-06] MEDS: DEXAMETHASONE SOD PHOSPHATE 4 MG/ML 1ML VIAL IVP SCH (22:00)
[2020-05-07 00:21] VITALS: BP 134/67
[2020-05-07] MEDS: CEFTRIAXONE SODIUM 1 GM IVP SCH ×2 (01:58→15:44)
[2020-05-07 04:00] VITALS: BP 141/65
--- NOTE | 2020-05-07 05:37 | NUR ---
No acute respiratory distress this shift. Patient maintaining POX at 99% when lying prone, POX drops b/w 93-95% in other positions. Encouraged to use bedpan for now. Will continue to monitor.
[2020-05-07] MEDS: DEXAMETHASONE SOD PHOSPHATE 4 MG/ML 1ML VIAL IVP SCH ×4 (06:00→21:39)
[2020-05-07 06:16] LABS: BASOPHILS % (AUTO) 0.1 % (0.0-5.0); EOSINOPHILS % (AUTO) 0.1 % (0.0-8.0); HEMATOCRIT 35.1 % (36-48); MEAN CORPUSCULAR HEMOGLOBIN 29.9 pg (27.0-33.0); MEAN CORPUSCULAR HGB CONC 34.2 g/dL (32.0-36.0); MEAN CORPUSCULAR VOLUME 87.5 fL (79-99); MONOCYTES % (AUTO) 2.7 % (3.0-13.0); PLATELET COUNT (AUTO) 127 K/uL (130-400); RED BLOOD CELL COUNT(AUTO) 4.01 MIL/uL (4.00-5.50); RED CELL DISTRIBUTION WIDTH 12.6 % (11.0-15.5); WHITE BLOOD COUNT (AUTO) 7.4 K/uL (4.8-10.8)
[2020-05-07 06:30] LABS: ALBUMIN 1.8 g/dL (3.5-5.0); BILIRUBIN,TOTAL 0.5 mg/dL (0.2-1.0); CREATININE 0.7 mg/dL (0.5-1.5); POTASSIUM 3.7 mmol/L (3.5-5.1); TOTAL PROTEIN, SERUM 5.7 g/dL (6.0-8.3)
[2020-05-07] MEDS: INSULIN HUMULIN R 100 UNIT/ML 3ML SQ SCH ×7 (07:30→21:30)
[2020-05-07] MEDS: ACETYLCYSTEINE 20% 200MG/ML 4ML VIAL PO SCH ×2 (08:59→20:51)
[2020-05-07] MEDS: COLCHICINE 0.6 MG TABLET PO SCH ×2 (09:00→20:51)
[2020-05-07] MEDS: ASCORBIC ACID 500 MG TAB PO SCH (09:00)
[2020-05-07] MEDS: ZINC SULFATE 220 CAPSULE PO SCH (09:00)
[2020-05-07] MEDS: ENOXAPARIN SODIUM 40 MG/0.4 ML SYRINGE SQ SCH ×2 (09:01→20:51)
[2020-05-07 11:10] VITALS: BP 117/73
[2020-05-07 16:00] VITALS: BP 116/56
[2020-05-07 20:05] VITALS: BP 105/59
[2020-05-07] MEDS: INSULIN GLARGINE 100 UNITS/ML 10 ML VIAL SQ SCH (21:29)
[2020-05-08] VITALS (7 sets, daily range): BP systolic 98–141; BP diastolic 47–68
[2020-05-08] MEDS: CEFTRIAXONE SODIUM 1 GM IVP SCH ×2 (02:34→14:07)
[2020-05-08] MEDS: DEXAMETHASONE SOD PHOSPHATE 4 MG/ML 1ML VIAL IVP SCH (06:37)
[2020-05-08 07:08] LABS: BASOPHILS % (AUTO) 0.1 % (0.0-5.0); HEMATOCRIT 38.1 % (36-48); LYMPHOCYTES % (AUTO) 6.4 % (21.0-51.0); MEAN CORPUSCULAR HEMOGLOBIN 30.4 pg (27.0-33.0); MEAN CORPUSCULAR HGB CONC 34.4 g/dL (32.0-36.0); MEAN CORPUSCULAR VOLUME 88.4 fL (79-99); MONOCYTES % (AUTO) 2.1 % (3.0-13.0); NEUTROPHILS % (AUTO) 90.3 % (40.0-77.0); PLATELET COUNT (AUTO) 150 K/uL (130-400); RED BLOOD CELL COUNT(AUTO) 4.31 MIL/uL (4.00-5.50); RED CELL DISTRIBUTION WIDTH 12.7 % (11.0-15.5); WHITE BLOOD COUNT (AUTO) 7.6 K/uL (4.8-10.8)
[2020-05-08 07:25] LABS: BILIRUBIN,TOTAL 0.6 mg/dL (0.2-1.0); CREATININE 0.6 mg/dL (0.5-1.5); CRP QUANTITATIVE 13.3 mg/L (0.00-9.0); TOTAL PROTEIN, SERUM 6.1 g/dL (6.0-8.3)
[2020-05-08] MEDS: INSULIN HUMULIN R 100 UNIT/ML 3ML SQ SCH ×7 (07:30→21:00)
[2020-05-08] MEDS: ACETYLCYSTEINE 20% 200MG/ML 4ML VIAL PO SCH ×2 (08:37→20:52)
[2020-05-08] MEDS: ZINC SULFATE 220 CAPSULE PO SCH (08:38)
[2020-05-08] MEDS: ASCORBIC ACID 500 MG TAB PO SCH (08:38)
[2020-05-08] MEDS: ENOXAPARIN SODIUM 40 MG/0.4 ML SYRINGE SQ SCH ×2 (08:39→20:52)
[2020-05-08] MEDS: COLCHICINE 0.6 MG TABLET PO SCH ×2 (08:39→20:52)
[2020-05-08] MEDS: INSULIN GLARGINE 100 UNITS/ML 10 ML VIAL SQ SCH (21:13)
[2020-05-09] MEDS: CEFTRIAXONE SODIUM 1 GM IVP SCH ×2 (02:52→14:45)
[2020-05-09 04:35] VITALS: BP_SYST 104; BP_SYST 128; BP_DIAS 55; BP_DIAS 76
[2020-05-09 07:30] VITALS: BP 91/49
[2020-05-09] MEDS: INSULIN HUMULIN R 100 UNIT/ML 3ML SQ SCH ×7 (07:30→20:43)
[2020-05-09] MEDS ORDERED: DEXAMETHASONE SOD PHOSPHATE 4 MG/ML 1ML VIAL IVP SCH (09:00)
[2020-05-09 09:10] LABS: CREATININE 0.7 mg/dL (0.5-1.5); CRP QUANTITATIVE 24.6 mg/L (0.00-9.0); POTASSIUM 3.7 mmol/L (3.5-5.1)
[2020-05-09] MEDS: ASCORBIC ACID 500 MG TAB PO SCH (09:28)
[2020-05-09] MEDS: ZINC SULFATE 220 CAPSULE PO SCH (09:28)
[2020-05-09] MEDS: ACETYLCYSTEINE 20% 200MG/ML 4ML VIAL PO SCH (09:30)
[2020-05-09] MEDS: COLCHICINE 0.6 MG TABLET PO SCH ×2 (09:32→20:41)
[2020-05-09] MEDS: ENOXAPARIN SODIUM 40 MG/0.4 ML SYRINGE SQ SCH ×2 (09:36→20:39)
[2020-05-09 11:00] VITALS: BP 115/61
[2020-05-09 16:00] VITALS: BP 118/53
[2020-05-09 19:30] VITALS: BP 114/52
[2020-05-09] MEDS: INSULIN GLARGINE 100 UNITS/ML 10 ML VIAL SQ SCH (20:42)
[2020-05-09 23:55] VITALS: BP 104/59
[2020-05-10 05:00] VITALS: BP 116/59
[2020-05-10] MEDS: CEFTRIAXONE SODIUM 1 GM IVP SCH ×2 (05:33→13:55)
[2020-05-10 06:49] LABS: BASOPHILS % (AUTO) 0.1 % (0.0-5.0); EOSINOPHILS % (AUTO) 2.5 % (0.0-8.0); HEMATOCRIT 38.6 % (36-48); LYMPHOCYTES % (AUTO) 11.6 % (21.0-51.0); MEAN CORPUSCULAR HEMOGLOBIN 30.3 pg (27.0-33.0); MEAN CORPUSCULAR HGB CONC 34.5 g/dL (32.0-36.0); MEAN CORPUSCULAR VOLUME 87.9 fL (79-99); MONOCYTES % (AUTO) 1.8 % (3.0-13.0); NEUTROPHILS % (AUTO) 82.5 % (40.0-77.0); PLATELET COUNT (AUTO) 129 K/uL (130-400); RED BLOOD CELL COUNT(AUTO) 4.39 MIL/uL (4.00-5.50); RED CELL DISTRIBUTION WIDTH 12.7 % (11.0-15.5); WHITE BLOOD COUNT (AUTO) 10.3 K/uL (4.8-10.8)
[2020-05-10 07:17] LABS: CREATININE 0.7 mg/dL (0.5-1.5); CRP QUANTITATIVE 81.3 mg/L (0.00-9.0); POTASSIUM 3.9 mmol/L (3.5-5.1)
[2020-05-10] MEDS: INSULIN HUMULIN R 100 UNIT/ML 3ML SQ SCH ×7 (07:30→20:25)
[2020-05-10 08:52] VITALS: BP 111/53
[2020-05-10] MEDS: COLCHICINE 0.6 MG TABLET PO SCH ×2 (09:24→20:22)
[2020-05-10] MEDS: ACETYLCYSTEINE 20% 200MG/ML 4ML VIAL PO SCH ×3 (09:24→21:00)
[2020-05-10] MEDS: ZINC SULFATE 220 CAPSULE PO SCH (09:25)
[2020-05-10] MEDS: ASCORBIC ACID 500 MG TAB PO SCH (09:25)
[2020-05-10] MEDS: DEXAMETHASONE SOD PHOSPHATE 4 MG/ML 1ML VIAL IVP SCH ×2 (09:25→20:22)
[2020-05-10] MEDS: ENOXAPARIN SODIUM 40 MG/0.4 ML SYRINGE SQ SCH ×2 (09:28→20:23)
[2020-05-10 11:23] VITALS: BP 110/60
[2020-05-10 16:09] VITALS: BP 118/66
[2020-05-10 20:00] VITALS: BP 112/60
[2020-05-10] MEDS: INSULIN GLARGINE 100 UNITS/ML 10 ML VIAL SQ SCH (20:25)
[2020-05-10 23:46] VITALS: BP 134/68
[2020-05-11] MEDS: CEFTRIAXONE SODIUM 1 GM IVP SCH ×2 (00:11→14:22)
[2020-05-11 04:00] VITALS: BP 116/67
[2020-05-11 06:31] LABS: BASOPHILS % (AUTO) 0.1 % (0.0-5.0); HEMATOCRIT 36.7 % (36-48); LYMPHOCYTES % (AUTO) 7.1 % (21.0-51.0); MEAN CORPUSCULAR HEMOGLOBIN 29.9 pg (27.0-33.0); MEAN CORPUSCULAR HGB CONC 34.3 g/dL (32.0-36.0); MEAN CORPUSCULAR VOLUME 87.2 fL (79-99); MONOCYTES % (AUTO) 1.6 % (3.0-13.0); NEUTROPHILS % (AUTO) 89.3 % (40.0-77.0); PLATELET COUNT (AUTO) 97 K/uL (130-400); RED BLOOD CELL COUNT(AUTO) 4.21 MIL/uL (4.00-5.50); RED CELL DISTRIBUTION WIDTH 13.1 % (11.0-15.5); WHITE BLOOD COUNT (AUTO) 8.2 K/uL (4.8-10.8)
[2020-05-11 06:58] LABS: CARBON DIOXIDE 24 mmol/L (21-32); CHLORIDE 103 mmol/L (101-111); CREATININE 0.5 mg/dL (0.5-1.5); GLOMERULAR FILTR. RATE CALC 130 mL/min (>60); GLUCOSE,RANDOM 164 mg/dL (70-105); POTASSIUM 4.2 mmol/L (3.5-5.1); SODIUM SERUM 138 mmol/L (136-145); UREA NITROGEN, BLOOD 21 mg/dL (7-18)
[2020-05-11] MEDS: INSULIN HUMULIN R 100 UNIT/ML 3ML SQ SCH ×7 (07:11→22:38)
[2020-05-11 07:13] LABS: BAND NEUTROPHILS % (MANUAL) 6 % (0-2); LYMPHOCYTES % (MANUAL) 7 % (22-44); MAN.DIFF COMMENT-IMPRESSION MANUAL DIFFERENTIAL; MONOCYTES % (MANUAL) 1 % (2-9); PLATELET MORPHOLOGY COMMENT DECREASED; REACTIVE LYMPHOCYTES 2 % (0-0); SEGMENTED NEUTROPHILS % 84 % (40-70)
[2020-05-11] MEDS: ACETYLCYSTEINE 20% 200MG/ML 4ML VIAL PO SCH ×2 (09:29→22:18)
[2020-05-11] MEDS: COLCHICINE 0.6 MG TABLET PO SCH ×2 (09:30→22:18)
[2020-05-11] MEDS: DEXAMETHASONE SOD PHOSPHATE 4 MG/ML 1ML VIAL IVP SCH ×2 (09:30→22:19)
[2020-05-11] MEDS: ZINC SULFATE 220 CAPSULE PO SCH (09:30)
[2020-05-11] MEDS: ENOXAPARIN SODIUM 40 MG/0.4 ML SYRINGE SQ SCH ×2 (09:31→22:19)
[2020-05-11] MEDS: ASCORBIC ACID 500 MG TAB PO SCH (09:31)
[2020-05-11 09:46] VITALS: BP 102/52
[2020-05-11 13:07] VITALS: BP 119/63
[2020-05-11 16:37] VITALS: BP 119/67
[2020-05-11 20:00] VITALS: BP 139/70
[2020-05-11] MEDS: INSULIN GLARGINE 100 UNITS/ML 10 ML VIAL SQ SCH (22:39)
[2020-05-11 23:39] VITALS: BP 123/68
[2020-05-12] MEDS: CEFTRIAXONE SODIUM 1 GM IVP SCH ×2 (03:00→14:45)
[2020-05-12 04:00] VITALS: BP 134/68
[2020-05-12] MEDS: INSULIN HUMULIN R 100 UNIT/ML 3ML SQ SCH ×7 (06:36→21:32)
[2020-05-12 07:07] LABS: CARBON DIOXIDE 27 mmol/L (21-32); CHLORIDE 103 mmol/L (101-111); CREATININE 0.6 mg/dL (0.5-1.5); GLOMERULAR FILTR. RATE CALC 105 mL/min (>60); GLUCOSE,RANDOM 142 mg/dL (70-105); LACTATE DEHYDROGENASE 277 U/L (81-234); POTASSIUM 3.8 mmol/L (3.5-5.1); SODIUM SERUM 137 mmol/L (136-145); UREA NITROGEN, BLOOD 18 mg/dL (7-18)
[2020-05-12 08:00] VITALS: BP 122/71
[2020-05-12] MEDS: DEXAMETHASONE SOD PHOSPHATE 4 MG/ML 1ML VIAL IVP SCH ×2 (09:31→21:16)
[2020-05-12] MEDS: ASCORBIC ACID 500 MG TAB PO SCH (09:32)
[2020-05-12] MEDS: ACETYLCYSTEINE 20% 200MG/ML 4ML VIAL PO SCH ×2 (09:32→21:15)
[2020-05-12] MEDS: ZINC SULFATE 220 CAPSULE PO SCH (09:32)
[2020-05-12] MEDS: COLCHICINE 0.6 MG TABLET PO SCH ×2 (09:32→21:16)
[2020-05-12] MEDS: ENOXAPARIN SODIUM 40 MG/0.4 ML SYRINGE SQ SCH ×2 (09:33→21:16)
[2020-05-12 12:00] VITALS: BP 150/53
[2020-05-12 16:00] VITALS: BP 106/64
[2020-05-12 20:00] VITALS: BP 117/55
[2020-05-12] MEDS: INSULIN GLARGINE 100 UNITS/ML 10 ML VIAL SQ SCH (21:34)
[2020-05-13] VITALS (7 sets, daily range): BP systolic 112–163; BP diastolic 51–85
[2020-05-13] MEDS: CEFTRIAXONE SODIUM 1 GM IVP SCH ×2 (03:15→13:44)
[2020-05-13] MEDS: INSULIN HUMULIN R 100 UNIT/ML 3ML SQ SCH ×7 (06:19→22:21)
[2020-05-13 07:39] LABS: BASOPHILS % (AUTO) 0.2 % (0.0-5.0); HEMATOCRIT 41.4 % (36-48); MEAN CORPUSCULAR HEMOGLOBIN 30.3 pg (27.0-33.0); MEAN CORPUSCULAR HGB CONC 34.3 g/dL (32.0-36.0); MEAN CORPUSCULAR VOLUME 88.5 fL (79-99); MONOCYTES % (AUTO) 2.8 % (3.0-13.0); PLATELET COUNT (AUTO) 142 K/uL (130-400); RED BLOOD CELL COUNT(AUTO) 4.68 MIL/uL (4.00-5.50); RED CELL DISTRIBUTION WIDTH 13.2 % (11.0-15.5); WHITE BLOOD COUNT (AUTO) 12.2 K/uL (4.8-10.8)
[2020-05-13] MEDS: ZINC SULFATE 220 CAPSULE PO SCH (07:46)
[2020-05-13] MEDS: DEXAMETHASONE SOD PHOSPHATE 4 MG/ML 1ML VIAL IVP SCH ×2 (07:46→21:33)
[2020-05-13] MEDS: COLCHICINE 0.6 MG TABLET PO SCH (07:46)
[2020-05-13] MEDS: ENOXAPARIN SODIUM 40 MG/0.4 ML SYRINGE SQ SCH ×2 (07:46→21:32)
[2020-05-13] MEDS: ASCORBIC ACID 500 MG TAB PO SCH (07:46)
[2020-05-13] MEDS: ACETYLCYSTEINE 600 MG CAPSULE PO SCH ×2 (07:46→21:32)
[2020-05-13 08:54] LABS: CARBON DIOXIDE 26 mmol/L (21-32); CHLORIDE 100 mmol/L (101-111); CREATININE 0.6 mg/dL (0.5-1.5); GLOMERULAR FILTR. RATE CALC 105 mL/min (>60); GLUCOSE,RANDOM 136 mg/dL (70-105); LACTATE DEHYDROGENASE 317 U/L (81-234); POTASSIUM 3.5 mmol/L (3.5-5.1); SODIUM SERUM 137 mmol/L (136-145); UREA NITROGEN, BLOOD 18 mg/dL (7-18)
[2020-05-13] MEDS ORDERED: FUROSEMIDE 10 MG/ML 2ML VIAL IV SCH (18:00)
--- NOTE | 2020-05-13 18:38 | NUR ---
PATIENT REMAINS ON PARTIAL NON-REBREATHER 70% THROUGHOUT THE DAY. SHE IS NOT ABLE TO KEEP HER O2 SAT OVER 95% WHEN SHE SPEAKS AND EATS. HYPERGLYCEMIA MANAGED WITH SLIDING SCALE. PATIENT WAS ABLE TO PRONE FOR ABOUT 10 HOURS TODAY.
[2020-05-13] MEDS: INSULIN GLARGINE 100 UNITS/ML 10 ML VIAL SQ SCH (21:35)
[2020-05-14 04:25] VITALS: BP 126/73
[2020-05-14] MEDS: CEFTRIAXONE SODIUM 1 GM IVP SCH (05:11)
[2020-05-14 06:33] VITALS: BP 104/61
[2020-05-14 06:52] LABS: BASOPHILS % (AUTO) 0.2 % (0.0-5.0); EOSINOPHILS % (AUTO) 0.1 % (0.0-8.0); LYMPHOCYTES % (AUTO) 5.2 % (21.0-51.0); MEAN CORPUSCULAR HEMOGLOBIN 30.3 pg (27.0-33.0); MEAN CORPUSCULAR HGB CONC 34.9 g/dL (32.0-36.0); MEAN CORPUSCULAR VOLUME 86.9 fL (79-99); MONOCYTES % (AUTO) 2.6 % (3.0-13.0); NEUTROPHILS % (AUTO) 89.2 % (40.0-77.0); PLATELET COUNT (AUTO) 132 K/uL (130-400); RED BLOOD CELL COUNT(AUTO) 4.49 MIL/uL (4.00-5.50); RED CELL DISTRIBUTION WIDTH 13.2 % (11.0-15.5); WHITE BLOOD COUNT (AUTO) 12.6 K/uL (4.8-10.8)
[2020-05-14] MEDS: INSULIN HUMULIN R 100 UNIT/ML 3ML SQ SCH ×7 (07:15→21:02)
[2020-05-14 07:34] LABS: CARBON DIOXIDE 27 mmol/L (21-32); CHLORIDE 102 mmol/L (101-111); CREATININE 0.7 mg/dL (0.5-1.5); GLOMERULAR FILTR. RATE CALC 88 mL/min (>60); GLUCOSE,RANDOM 188 mg/dL (70-105); LACTATE DEHYDROGENASE 284 U/L (81-234); POTASSIUM 3.9 mmol/L (3.5-5.1); SODIUM SERUM 139 mmol/L (136-145); UREA NITROGEN, BLOOD 25 mg/dL (7-18)
[2020-05-14] MEDS: DEXAMETHASONE SOD PHOSPHATE 4 MG/ML 1ML VIAL IVP SCH (09:15)
[2020-05-14] MEDS: ZINC SULFATE 220 CAPSULE PO SCH (09:16)
[2020-05-14] MEDS: ACETYLCYSTEINE 600 MG CAPSULE PO SCH ×2 (09:16→20:58)
[2020-05-14] MEDS: ASCORBIC ACID 500 MG TAB PO SCH (09:16)
[2020-05-14] MEDS: ENOXAPARIN SODIUM 40 MG/0.4 ML SYRINGE SQ SCH ×2 (09:16→20:59)
[2020-05-14 11:00] VITALS: BP 130/88
--- NOTE | 2020-05-14 15:30 | NUR ---
PATIENT IS PENDING 2D ECHO TO EVALUATE FOR HEART FAILURE. SHE REMAINS ON PARTIAL NON-REBREATHER 70%. O2 SAT AT REST: 94-96% BUT DESATURATES TO HIGH 80'S WHEN TALKING. DR. MARSHALL AND DR. MCCULLOUGH SAW PATIENT TODAY.
[2020-05-14 16:00] VITALS: BP 111/65
[2020-05-14 19:55] VITALS: BP 111/82
[2020-05-14] MEDS: INSULIN GLARGINE 100 UNITS/ML 10 ML VIAL SQ SCH (21:01)
[2020-05-15 00:02] VITALS: BP 130/68
[2020-05-15 05:25] VITALS: BP 127/76
[2020-05-15 06:13] VITALS: BP 93/47
[2020-05-15 06:38] LABS: LACTATE DEHYDROGENASE 326 U/L (81-234)
[2020-05-15] MEDS: INSULIN HUMULIN R 100 UNIT/ML 3ML SQ SCH ×7 (07:30→21:00)
[2020-05-15] MEDS: ENOXAPARIN SODIUM 40 MG/0.4 ML SYRINGE SQ SCH ×2 (08:22→21:51)
[2020-05-15] MEDS: DEXAMETHASONE SOD PHOSPHATE 4 MG/ML 1ML VIAL IVP SCH (08:26)
[2020-05-15] MEDS: ACETYLCYSTEINE 600 MG CAPSULE PO SCH ×2 (08:28→21:51)
[2020-05-15] MEDS: ASCORBIC ACID 500 MG TAB PO SCH (08:28)
[2020-05-15] MEDS: ZINC SULFATE 220 CAPSULE PO SCH (08:29)
[2020-05-15] MEDS: COLCHICINE 0.6 MG TABLET PO SCH ×2 (08:30→21:51)
[2020-05-15] MEDS: ACETAMINOPHEN 325 MG TAB PO PRN (09:31)
[2020-05-15 11:00] VITALS: BP 111/62
[2020-05-15 16:00] VITALS: BP 112/56
[2020-05-15] MEDS: INSULIN GLARGINE 100 UNITS/ML 10 ML VIAL SQ SCH (21:07)
[2020-05-15 21:31] VITALS: BP 109/57
[2020-05-16 00:38] VITALS: BP 115/46
[2020-05-16 05:59] VITALS: BP 111/63
[2020-05-16 06:01] LABS: CREATININE 0.6 mg/dL (0.5-1.5); CRP QUANTITATIVE 159.7 mg/L (0.00-9.0); POTASSIUM 3.5 mmol/L (3.5-5.1)
[2020-05-16] MEDS: INSULIN HUMULIN R 100 UNIT/ML 3ML SQ SCH ×7 (06:03→21:00)
[2020-05-16 07:00] VITALS: BP 103/49
[2020-05-16] MEDS: DEXAMETHASONE SOD PHOSPHATE 4 MG/ML 1ML VIAL IVP SCH (09:05)
[2020-05-16] MEDS: ASCORBIC ACID 500 MG TAB PO SCH (09:05)
[2020-05-16] MEDS: COLCHICINE 0.6 MG TABLET PO SCH ×2 (09:06→22:12)
[2020-05-16] MEDS: ACETAMINOPHEN 325 MG TAB PO PRN (09:06)
[2020-05-16] MEDS: ACETYLCYSTEINE 600 MG CAPSULE PO SCH ×2 (09:06→22:12)
[2020-05-16] MEDS: ENOXAPARIN SODIUM 40 MG/0.4 ML SYRINGE SQ SCH ×2 (09:08→22:14)
[2020-05-16] MEDS: ZINC SULFATE 220 CAPSULE PO SCH (09:08)
[2020-05-16 11:00] VITALS: BP 111/46
--- NOTE | 2020-05-16 12:55 | NUR ---
ORDERS PER DR. CAREY LOGGING ASSISTANT ORDER, POTASSIUM 40 MEQ X ONCE (K3.5)
[2020-05-16] MEDS ORDERED: POTASSIUM CHLORIDE 20 MEQ ERTAB PO ONE (14:00)
[2020-05-16 16:00] VITALS: BP 117/73
--- NOTE | 2020-05-16 17:00 | NUR ---
SPOKE TO FAMILY AND PATIENT RE DC PLANNING AT THE REQUEST OF MD, DISCUSSED [facility] WITH FAMILY MEMBERS SON AND VIVIENNE LISTED IN THE FACE SHEET. DECLINED. SON REQUESTING INFO SENT. WILL PREPARE AND SEND VIA EMAIL TO CR@ [employer] WENT TO PATIENT BEDSIDE, SUPPLIED INFORMATIONAL MATERIAL, REASSURED PATIENT THAT SHE WILL NOT TRANSFER TO ANOTHER FACILITY AGAINST HER WISHES. WILL FOLLOW UP Addendum: 05/17/20 at 1343 by FREDERICK KELLY RN CM Amended: Links added.
[2020-05-16 21:11] VITALS: BP 103/49
[2020-05-16] MEDS: INSULIN GLARGINE 100 UNITS/ML 10 ML VIAL SQ SCH (23:09)
[2020-05-17 01:15] VITALS: BP 123/63
[2020-05-17 06:42] VITALS: BP 163/88
[2020-05-17 07:52] VITALS: BP 144/71
[2020-05-17] MEDS: DEXAMETHASONE SOD PHOSPHATE 4 MG/ML 1ML VIAL IVP SCH (07:54)
[2020-05-17] MEDS: COLCHICINE 0.6 MG TABLET PO SCH ×2 (07:54→21:27)
[2020-05-17] MEDS: ENOXAPARIN SODIUM 40 MG/0.4 ML SYRINGE SQ SCH ×2 (07:55→21:27)
[2020-05-17] MEDS: ACETYLCYSTEINE 600 MG CAPSULE PO SCH ×2 (07:55→21:28)
[2020-05-17] MEDS: ASCORBIC ACID 500 MG TAB PO SCH (07:55)
[2020-05-17] MEDS: ZINC SULFATE 220 CAPSULE PO SCH (07:55)
[2020-05-17] MEDS: ACETAMINOPHEN 325 MG TAB PO PRN (07:56)
[2020-05-17] MEDS: INSULIN HUMULIN R 100 UNIT/ML 3ML SQ SCH ×4 (11:30→21:25)
--- NOTE | 2020-05-17 11:30 | NUR ---
CHART REVIEWED, DISCUSSED DC PLAN WITH JENARO MENDENHALL SENT WRITTEN MATERIAL ON [facility] TO SON THIS MORNING VIA EMAIL, SEE PREVIOUS NOTE. SENT ALSO THE NAMES OF THE STEEL HANDLER WHO HAVE DOCUMENTED ON HIS MOTHERS CHART SO FAR--- REQUESTED BY SON. REC'D TRIGGER THAT PATIENT DID NOT WANT TO GO TO [facility], AND RELAYED TO SON THAT IF SHE DOES NOT CONSENT TO [facility], WE WILL WORK TO FIND ALTERNATE PLACEMENT WHEN APPROPRIATE. DISCUSSED ABOVE WITH RN AND WITH Addendum: 05/17/20 at 1353 by FREDERICK KELLY RN CM Amended: Links added.
[2020-05-17] MEDS ORDERED: ALPRAZOLAM 0.5 MG TABLET ONE (12:24)
[2020-05-17] MEDS: METFORMIN HCL 500 MG TABLET PO SCH ×2 (12:25→17:00)
[2020-05-17] MEDS ORDERED: ALPRAZOLAM 0.5 MG TABLET PO PRN (12:30)
--- NOTE | 2020-05-17 18:51 | NUR ---
Rounds Provider assessed pt at bedside. Increased XaNAX TO 1MG PO bid SCHEDULED AND 50 MG tRAZADONE AT HS. Respiratory is to continue to try to wean pt as tolerated for placement. Nursing staff to encourage prone positioning. Dietary was consulted for nutritional supplements due to poor po intake and PT consulted-eval and treat as needed. Remains on HiFlo O2 at 40L 90% - when not exerted by talking, pt's sats are 94-95%.
[2020-05-17] MEDS ORDERED: TRAZODONE HCL 50 MG TAB PO PRN (19:00)
[2020-05-17 20:04] VITALS: BP 125/65
--- NOTE | 2020-05-17 20:15 | NUR ---
ASSESSMENT PT RESTING QUIETLY IN BED. DENIES ANY PAIN OR DISCOMFORT. HI FLOW 50L AT 100% IN PLACE. PT ENCOURAGED TO PRONE SELF, PT VERBALIZED UNDERSTANDING OF SAME. S.O.B. NOTED AT REST. ASSESSMENT COMPLETED, SEE FLOW SHEET.
[2020-05-17] MEDS: INSULIN GLARGINE 100 UNITS/ML 10 ML VIAL SQ SCH (21:26)
[2020-05-17] MEDS: ALPRAZOLAM 1 MG TAB PO SCH (21:27)
[2020-05-18] VITALS (7 sets, daily range): BP systolic 105–147; BP diastolic 64–78
[2020-05-18 04:24] LABS: BASOPHILS % (AUTO) 0.2 % (0.0-5.0); EOSINOPHILS % (AUTO) 0.7 % (0.0-8.0); HEMATOCRIT 37.3 % (36-48); LYMPHOCYTES % (AUTO) 11.7 % (21.0-51.0); MEAN CORPUSCULAR HEMOGLOBIN 30.7 pg (27.0-33.0); MEAN CORPUSCULAR HGB CONC 34.9 g/dL (32.0-36.0); MEAN CORPUSCULAR VOLUME 88.2 fL (79-99); NEUTROPHILS % (AUTO) 80.4 % (40.0-77.0); PLATELET COUNT (AUTO) 190 K/uL (130-400); RED BLOOD CELL COUNT(AUTO) 4.23 MIL/uL (4.00-5.50); RED CELL DISTRIBUTION WIDTH 13.8 % (11.0-15.5); WHITE BLOOD COUNT (AUTO) 8.5 K/uL (4.8-10.8)
[2020-05-18 05:08] LABS: ALBUMIN 2.2 g/dL (3.5-5.0); BILIRUBIN,TOTAL 0.6 mg/dL (0.2-1.0); CREATININE 0.6 mg/dL (0.5-1.5); CRP QUANTITATIVE 62.2 mg/L (0.00-9.0); POTASSIUM 3.9 mmol/L (3.5-5.1); TOTAL PROTEIN, SERUM 6.7 g/dL (6.0-8.3)
[2020-05-18] MEDS: INSULIN HUMULIN R 100 UNIT/ML 3ML SQ SCH ×7 (06:17→21:31)
[2020-05-18] MEDS: METFORMIN HCL 500 MG TABLET PO SCH ×3 (08:00→17:00)
[2020-05-18] MEDS: DEXAMETHASONE SOD PHOSPHATE 4 MG/ML 1ML VIAL IVP SCH (09:00)
--- NOTE | 2020-05-18 09:00 | NUR ---
RESPIRATORY PATIENT DESATS TO 60% TO LOW 80s UNABLE TO GET SATS UP WITH BREATHING TECHNIQUES INCREASED FROM 40L TO 50L SATS UP TO 90% RESPIRATORY NOTIFIED. RESP CAME TO SEE PATIENT AND LEFT ON 50L AT THIS TIME. DESATS WITH ANY MOVEMENTS
[2020-05-18] MEDS: COLCHICINE 0.6 MG TABLET PO SCH ×2 (09:01→21:33)
[2020-05-18] MEDS: ASCORBIC ACID 500 MG TAB PO SCH (09:01)
[2020-05-18] MEDS: ALPRAZOLAM 1 MG TAB PO SCH ×2 (09:01→21:33)
[2020-05-18] MEDS: ACETYLCYSTEINE 600 MG CAPSULE PO SCH ×2 (09:01→21:33)
[2020-05-18] MEDS: ENOXAPARIN SODIUM 40 MG/0.4 ML SYRINGE SQ SCH ×2 (09:05→21:34)
[2020-05-18] MEDS: ZINC SULFATE 220 CAPSULE PO SCH (09:06)
--- NOTE | 2020-05-18 10:53 | NUR ---
RD FOLLOW UP RD notification nutrition supplement evaluation. Pt tolerated 75gm CC diet order with no report of GI distress. Pt with fluctuating PO intake. 60mL ProMod QD. Zinc, Vitamin C, N-Boaz in place. Improved Alb levels. Decreased BG this Am. Recommend continue protein supplementation of 60mL ProMod QD Recommend add Glucerna BID Recommend continue current diet order. RD to continue to monitor. Please notify as additional nutrition concerns arise. Thank you. Addendum: 05/18/20 at [address] RD Amended: Links added.
[2020-05-18] MEDS: ACETAMINOPHEN 325 MG TAB PO PRN (20:34)
[2020-05-18] MEDS: INSULIN GLARGINE 100 UNITS/ML 10 ML VIAL SQ SCH (21:30)
[2020-05-19 03:00] VITALS: BP 112/61
[2020-05-19 04:42] LABS: BASOPHILS % (AUTO) 0.2 % (0.0-5.0); EOSINOPHILS % (AUTO) 1.2 % (0.0-8.0); HEMATOCRIT 35.2 % (36-48); LYMPHOCYTES % (AUTO) 14.5 % (21.0-51.0); MEAN CORPUSCULAR HEMOGLOBIN 30.1 pg (27.0-33.0); MEAN CORPUSCULAR HGB CONC 33.8 g/dL (32.0-36.0); MEAN CORPUSCULAR VOLUME 89.1 fL (79-99); MONOCYTES % (AUTO) 3.4 % (3.0-13.0); NEUTROPHILS % (AUTO) 75.7 % (40.0-77.0); PLATELET COUNT (AUTO) 180 K/uL (130-400); RED BLOOD CELL COUNT(AUTO) 3.95 MIL/uL (4.00-5.50); RED CELL DISTRIBUTION WIDTH 13.7 % (11.0-15.5); WHITE BLOOD COUNT (AUTO) 6.4 K/uL (4.8-10.8)
[2020-05-19 05:13] LABS: ALBUMIN 2.1 g/dL (3.5-5.0); BILIRUBIN,TOTAL 0.4 mg/dL (0.2-1.0); CREATININE 0.6 mg/dL (0.5-1.5); CRP QUANTITATIVE 41.6 mg/L (0.00-9.0); POTASSIUM 4.1 mmol/L (3.5-5.1); TOTAL PROTEIN, SERUM 6.3 g/dL (6.0-8.3)
[2020-05-19] MEDS: INSULIN HUMULIN R 100 UNIT/ML 3ML SQ SCH ×7 (06:39→21:00)
[2020-05-19 07:00] VITALS: BP 119/64
[2020-05-19] MEDS: ENOXAPARIN SODIUM 40 MG/0.4 ML SYRINGE SQ SCH ×2 (08:07→20:55)
[2020-05-19] MEDS: ASCORBIC ACID 500 MG TAB PO SCH (08:07)
[2020-05-19] MEDS: ACETYLCYSTEINE 600 MG CAPSULE PO SCH ×2 (08:07→20:55)
[2020-05-19] MEDS: ALPRAZOLAM 1 MG TAB PO SCH ×2 (08:07→20:55)
[2020-05-19] MEDS: ZINC SULFATE 220 CAPSULE PO SCH (08:07)
[2020-05-19] MEDS: COLCHICINE 0.6 MG TABLET PO SCH ×2 (08:07→20:55)
[2020-05-19] MEDS: METFORMIN HCL 500 MG TABLET PO SCH ×3 (08:19→16:25)
[2020-05-19 11:00] VITALS: BP 129/66
[2020-05-19 15:00] VITALS: BP 110/62
[2020-05-19 19:00] VITALS: BP 115/64
[2020-05-19] MEDS: INSULIN GLARGINE 100 UNITS/ML 10 ML VIAL SQ SCH (21:00)
[2020-05-19 23:00] VITALS: BP 104/62
[2020-05-20 03:00] VITALS: BP 100/54
[2020-05-20 04:12] LABS: BASOPHILS % (AUTO) 0.4 % (0.0-5.0); EOSINOPHILS % (AUTO) 3.6 % (0.0-8.0); HEMATOCRIT 36.7 % (36-48); LYMPHOCYTES % (AUTO) 18.4 % (21.0-51.0); MEAN CORPUSCULAR HEMOGLOBIN 30.4 pg (27.0-33.0); MEAN CORPUSCULAR HGB CONC 34.3 g/dL (32.0-36.0); MEAN CORPUSCULAR VOLUME 88.4 fL (79-99); MONOCYTES % (AUTO) 3.4 % (3.0-13.0); NEUTROPHILS % (AUTO) 68.9 % (40.0-77.0); PLATELET COUNT (AUTO) 207 K/uL (130-400); RED BLOOD CELL COUNT(AUTO) 4.15 MIL/uL (4.00-5.50); RED CELL DISTRIBUTION WIDTH 13.6 % (11.0-15.5); WHITE BLOOD COUNT (AUTO) 8.3 K/uL (4.8-10.8)
[2020-05-20 04:40] LABS: ALBUMIN 2.2 g/dL (3.5-5.0); BILIRUBIN,TOTAL 0.6 mg/dL (0.2-1.0); CREATININE 0.6 mg/dL (0.5-1.5); CRP QUANTITATIVE 65.6 mg/L (0.00-9.0); POTASSIUM 3.6 mmol/L (3.5-5.1); TOTAL PROTEIN, SERUM 6.3 g/dL (6.0-8.3)
[2020-05-20] MEDS: INSULIN HUMULIN R 100 UNIT/ML 3ML SQ SCH ×7 (06:42→20:44)
[2020-05-20] MEDS: ALPRAZOLAM 1 MG TAB PO SCH ×2 (08:30→20:38)
[2020-05-20] MEDS: METFORMIN HCL 500 MG TABLET PO SCH ×3 (08:30→16:15)
[2020-05-20] MEDS: ASCORBIC ACID 500 MG TAB PO SCH (08:30)
[2020-05-20] MEDS: COLCHICINE 0.6 MG TABLET PO SCH ×2 (08:30→20:38)
[2020-05-20] MEDS: ACETYLCYSTEINE 600 MG CAPSULE PO SCH ×2 (08:30→20:38)
[2020-05-20] MEDS: ZINC SULFATE 220 CAPSULE PO SCH (08:30)
[2020-05-20] MEDS: ENOXAPARIN SODIUM 40 MG/0.4 ML SYRINGE SQ SCH ×2 (08:31→20:39)
[2020-05-20 09:08] VITALS: BP 117/60
[2020-05-20 12:10] VITALS: BP 114/66
[2020-05-20 15:32] VITALS: BP 101/50
[2020-05-20 19:00] VITALS: BP 110/61
[2020-05-20] MEDS: INSULIN GLARGINE 100 UNITS/ML 10 ML VIAL SQ SCH (20:44)
[2020-05-20 23:00] VITALS: BP 112/63
[2020-05-21 03:00] VITALS: BP 98/55
[2020-05-21 05:50] LABS: BILIRUBIN,TOTAL 0.9 mg/dL (0.2-1.0); CREATININE 0.5 mg/dL (0.5-1.5); POTASSIUM 3.2 mmol/L (3.5-5.1); TOTAL PROTEIN, SERUM 6.2 g/dL (6.0-8.3)
[2020-05-21 05:59] LABS: CRP QUANTITATIVE 246.5 mg/L (0.00-9.0)
[2020-05-21] MEDS: INSULIN HUMULIN R 100 UNIT/ML 3ML SQ SCH ×7 (06:35→20:37)
[2020-05-21 07:00] VITALS: BP 105/55
[2020-05-21] MEDS ORDERED: LIDOCAINE HCL-MPF 1% 2ML VIAL IV PRN (08:00)
[2020-05-21] MEDS ORDERED: POTASSIUM CHLORIDE 10% ELIXIR 20 MEQ/15 ML UDCUP PO PRN (08:00)
[2020-05-21] MEDS ORDERED: POTASSIUM CHLORIDE 20MEQ/100ML 100 ML IV PRN (08:00)
[2020-05-21] MEDS: POTASSIUM CHLORIDE 20 MEQ ERTAB PO PRN ×2 (09:00→12:10)
[2020-05-21] MEDS: ZINC SULFATE 220 CAPSULE PO SCH (09:00)
[2020-05-21] MEDS: ACETYLCYSTEINE 600 MG CAPSULE PO SCH ×2 (09:00→20:37)
[2020-05-21] MEDS: METFORMIN HCL 500 MG TABLET PO SCH ×3 (09:00→15:56)
[2020-05-21] MEDS: COLCHICINE 0.6 MG TABLET PO SCH ×2 (09:00→20:37)
[2020-05-21] MEDS: ASCORBIC ACID 500 MG TAB PO SCH (09:00)
[2020-05-21] MEDS: DEXAMETHASONE 10MG/ML 1ML VIAL 6 MG in SODIUM CHLORIDE 0.9% 50 ML IV SCH (09:00)
[2020-05-21] MEDS: ALPRAZOLAM 1 MG TAB PO SCH ×2 (09:00→20:37)
--- NOTE | 2020-05-21 09:00 | NUR ---
RECEIVED CALL FROM PATIENTS SON ETHAN AND DAUGHTER LUANNE. REQUESTING TO SPEAK WITH HOSPITALIST AND PULMO. RIDGE NORIEGA MOVIE SHOT CAMERAMAN MADE AWARE, SHE ATTEMPTED TO CALL DAUGHTERS PHONE NOT WORKING AND SON DID NOT ANSWER VOICEMAIL WAS LEFT.
[2020-05-21] MEDS: ENOXAPARIN SODIUM 40 MG/0.4 ML SYRINGE SQ SCH ×2 (09:01→20:38)
--- NOTE | 2020-05-21 09:14 | NUR ---
PATIENT REFUSED XANAX STATING SHE IS TOO SLEEPY
[2020-05-21 11:00] VITALS: BP 118/63
--- NOTE | 2020-05-21 12:00 | NUR ---
DR. ISABEL MADE AWARE FAMILY REQUESTING TO SPEAK WITH HIM REGARDING PATIENTS CURRENT CONDITION AND PROGNOSIS. CT SCAN REVIEWED, DR. ISABEL SPOKE WITH BOTH PATIENTS SON AND DAUGHTER.
--- NOTE | 2020-05-21 12:51 | NUR ---
cm note received call from son Ronn [phone] and on the line with pt's daughter Lyn [phone]. and states they would like to speak to the main MD caring for the pt. also request that Dr Bartholomew, logistics officer also be consulted for a second opinion. due to pt's prolonged stay.call made to Cordell Newman NP, and states that she will update Dr. Gage medina on the family's request. and she will also call the family to update.
--- NOTE | 2020-05-21 15:50 | NUR ---
PATIENT ON 40LITERS HIGHFLOW NC 90% WITH 15L NON REBREATHER. NOTED PATIENT SATURATING 85-87%, NOTED WITH SHORTNESS OF BREATH. RIDGE NORIEGA HOUSE MANAGER MADE AWARE, NEW ORDER STAT ABG EVALUATE FOR BIPAP
[2020-05-21 16:02] VITALS: BP 112/60
--- NOTE | 2020-05-21 16:16 | NUR ---
ABG RESULTS REVIEWED WITH RIDGE NORIEGA SUPERINTENDENT METER TESTS AND RESPIRATORY THERAPIST. RT CHANGED OXYGEN REQUIREMENTS TO 55LITERS HIGHFLOW 100% AND CONTINUE 100% NON REBREATHER 15L. PATIENT AT THIS TIME AAOX3, C/O DRYNOSE BECAUSE OF OXYGEN. O2 SAT IMPROVED TO 93% WILL CONTINUE TO MONITOR
[2020-05-21 16:19] LABS: ABG BASE EXCESS 0.4 mmol/L (-2.0-3.0); ABG HCO3 23.7 mmol/L (21.0-28.0); ABG OXYGEN SATURATION 91.4 % (95.0-99.0); ABG PCO2 35 mmHg (32-45)
--- NOTE | 2020-05-21 16:45 | NUR ---
SPOKE WITH PATIENTS SON AND DAUGHTER. REVIEWED MEDICATIONS AND CURRENT TREATMENT
[2020-05-21 20:00] VITALS: BP 128/58
[2020-05-21] MEDS: INSULIN GLARGINE 100 UNITS/ML 10 ML VIAL SQ SCH (20:37)
[2020-05-21] MEDS ORDERED: PHARMACY COMMUNICATION MISC SCH (23:30)
[2020-05-21] MEDS ORDERED: DEXAMETHASONE SOD PHOSPHATE 4 MG/ML 1ML VIAL ONE (23:43)
[2020-05-21] MEDS ORDERED: DEXAMETHASONE SOD PHOSPHATE 4 MG/ML 1ML VIAL IVP SCH (23:45)
[2020-05-22 00:03] VITALS: BP 117/67
[2020-05-22 03:51] VITALS: BP 131/53
[2020-05-22 05:01] LABS: BILIRUBIN,TOTAL 0.6 mg/dL (0.2-1.0); CREATININE 0.5 mg/dL (0.5-1.5); POTASSIUM 3.6 mmol/L (3.5-5.1); TOTAL PROTEIN, SERUM 6.5 g/dL (6.0-8.3)
[2020-05-22 05:28] LABS: CRP QUANTITATIVE 219.2 mg/L (0.00-9.0)
[2020-05-22] MEDS: INSULIN HUMULIN R 100 UNIT/ML 3ML SQ SCH ×6 (06:37→20:37)
[2020-05-22] MEDS: ACETYLCYSTEINE 600 MG CAPSULE PO SCH ×2 (08:01→20:34)
[2020-05-22] MEDS: ZINC SULFATE 220 CAPSULE PO SCH (08:01)
[2020-05-22] MEDS: COLCHICINE 0.6 MG TABLET PO SCH ×2 (08:01→20:34)
[2020-05-22] MEDS: ASCORBIC ACID 500 MG TAB PO SCH (08:01)
[2020-05-22] MEDS: ENOXAPARIN SODIUM 40 MG/0.4 ML SYRINGE SQ SCH ×2 (08:01→20:34)
[2020-05-22] MEDS: DEXAMETHASONE 10MG/ML 1ML VIAL 6 MG in SODIUM CHLORIDE 0.9% 50 ML IV SCH ×2 (08:03→08:10)
[2020-05-22] MEDS: METFORMIN HCL 500 MG TABLET PO SCH ×4 (08:07→17:45)
[2020-05-22 08:28] VITALS: BP 145/76
[2020-05-22] MEDS ORDERED: DEXAMETHASONE SOD PHOSPHATE 4 MG/ML 1ML VIAL IVP SCH ×2 (09:00)
[2020-05-22 12:08] VITALS: BP 119/65
--- NOTE | 2020-05-22 13:34 | NUR ---
Update Daughter (Lyn) was called and updated \.Family is asking MD to call to address possible transfer, review plan of care. Spoke to Dr. Vizcaino. He stated that he will call and talk to the family today. Phone [phone] was given to .
[2020-05-22 16:27] VITALS: BP 128/70
--- NOTE | 2020-05-22 16:57 | NUR ---
TRANSFER R DR. ESCOBAR CALLED SAID THAT HE SPOKE TO DAUGHTER LUANNE WHO IS VERY UPSET AND REQUESTING TRANSFER TO [facility] ASKED FOR ME TO TALK TO HER. SPOKE TO LUANNE [phone]. SAID THAT MOM HAS HAD GOOD NURSES AND BAD NURSES. IN ONE INSTANCE MOM LEFT SOILED FOR 3 HOURS. WHEN ASKED NURSING TOLD HER SHE WAS NOT THE ONLY PATIENT AND WAIT. SHE HAD OTHER CONCERNS AND OTHER INSTANCES. EXPLAINED TO HER THAT FAMILY REQUEST IS NOT HIGHER LEVEL OF CARE. WOULD NEED ACCEPTING MD AND ACCEPTING HOSPITAL. CALLED [facility] FOR R SAID THEY DO NOT DO TRANSFERS ANY MORE IT IS THE TRANSFER CENTER. [phone] CALLED SPOKE TO IGNACIO. IGNACIO CALLED BACK AND SAID THAT SHE HAD SPOKEN TO [facility] AND THEY HAD GIVEN AN ADMINISTRATIVE DENIAL. NO TO TRANSFER. CALLED LUANNE BACK EXPLAINED DHR DENIED. VERBALIZED UNDERSTANDING. TRIED TO OFFER CDA IN CASE SHE WANTED ANOTHER FACILITY. SAID NO LEAVE MOM THERE. WILL LIKE CALL BACK FROM ADMIN OR PATIENT ADVOCATE SO THAT SHE CAN LET SOMEONE KNOW ISSUES. CM WILL SEND EMAIL TO [facility] PATIENT [facility]VOC[facility], CM DIRECTOR, 2ND PRICING ASSOCIATE. LET JANET OLSON AND KNOW OF DENIAL FROM [facility]. Addendum: 05/22/20 at 1703 by BRIE GANT RN CM Amended: Links added.
[2020-05-22 19:57] VITALS: BP 135/69
[2020-05-22] MEDS: INSULIN GLARGINE 100 UNITS/ML 10 ML VIAL SQ SCH (20:36)
[2020-05-23] VITALS (7 sets, daily range): BP systolic 125–151; BP diastolic 65–82
[2020-05-23 05:24] LABS: BASOPHILS % (AUTO) 0.1 % (0.0-5.0); HEMATOCRIT 30.9 % (36-48); LYMPHOCYTES % (AUTO) 8.7 % (21.0-51.0); MEAN CORPUSCULAR HEMOGLOBIN 29.7 pg (27.0-33.0); MEAN CORPUSCULAR HGB CONC 33.3 g/dL (32.0-36.0); MONOCYTES % (AUTO) 4.1 % (3.0-13.0); NEUTROPHILS % (AUTO) 83.8 % (40.0-77.0); PLATELET COUNT (AUTO) 285 K/uL (130-400); RED BLOOD CELL COUNT(AUTO) 3.47 MIL/uL (4.00-5.50); RED CELL DISTRIBUTION WIDTH 13.9 % (11.0-15.5); WHITE BLOOD COUNT (AUTO) 7.6 K/uL (4.8-10.8)
[2020-05-23 05:56] LABS: BILIRUBIN,TOTAL 0.4 mg/dL (0.2-1.0); CREATININE 0.5 mg/dL (0.5-1.5); CRP QUANTITATIVE 67.6 mg/L (0.00-9.0); POTASSIUM 3.5 mmol/L (3.5-5.1); TOTAL PROTEIN, SERUM 6.2 g/dL (6.0-8.3)
[2020-05-23] MEDS: INSULIN HUMULIN R 100 UNIT/ML 3ML SQ SCH ×4 (06:33→20:12)
[2020-05-23] MEDS: METFORMIN HCL 500 MG TABLET PO SCH ×2 (06:36→17:28)
[2020-05-23] MEDS: COLCHICINE 0.6 MG TABLET PO SCH ×2 (08:45→19:48)
[2020-05-23] MEDS: ZINC SULFATE 220 CAPSULE PO SCH (08:45)
[2020-05-23] MEDS: ASCORBIC ACID 500 MG TAB PO SCH (08:45)
[2020-05-23] MEDS: ACETYLCYSTEINE 600 MG CAPSULE PO SCH ×2 (08:45→19:48)
[2020-05-23] MEDS: ENOXAPARIN SODIUM 40 MG/0.4 ML SYRINGE SQ SCH ×2 (08:46→19:48)
[2020-05-23] MEDS: DEXAMETHASONE 10MG/ML 1ML VIAL 6 MG in SODIUM CHLORIDE 0.9% 50 ML IV SCH (09:00)
--- NOTE | 2020-05-23 12:55 | NUR ---
Medication Held Pt states she does not want lunch this afternoon, held 2 units of sliding scale insulin. Pt cleaned and linens changed. Lights dimmed for comfort. Will continue to monitor.
--- NOTE | 2020-05-23 15:50 | NUR ---
DC Plan At the bedside with Dr. Vizcaino, discussing possible transfer to the [facility]. Both Dr. Vizcaino and patient in agreement to transfer. Patient provided verbal consent for KIR[facility] and Choice Letter. Dr. Vizcaino witnessed consent. Updated bedside CM of patient's willingness to go. CD Addendum: 05/24/20 at 1421 by TAMRA POON CM Amended: Links added.
[2020-05-23] MEDS: INSULIN GLARGINE 100 UNITS/ML 10 ML VIAL SQ SCH (20:13)
[2020-05-24 04:04] VITALS: BP 128/76
[2020-05-24] MEDS: INSULIN HUMULIN R 100 UNIT/ML 3ML SQ SCH ×2 (06:23→11:30)
[2020-05-24] MEDS: METFORMIN HCL 500 MG TABLET PO SCH (06:27)
[2020-05-24] MEDS: DEXAMETHASONE 10MG/ML 1ML VIAL 6 MG in SODIUM CHLORIDE 0.9% 50 ML IV SCH (08:54)
[2020-05-24] MEDS: ACETYLCYSTEINE 600 MG CAPSULE PO SCH (08:54)
[2020-05-24] MEDS: ZINC SULFATE 220 CAPSULE PO SCH (08:54)
[2020-05-24] MEDS: ASCORBIC ACID 500 MG TAB PO SCH (08:54)
[2020-05-24] MEDS: COLCHICINE 0.6 MG TABLET PO SCH (08:54)
[2020-05-24] MEDS: ENOXAPARIN SODIUM 40 MG/0.4 ML SYRINGE SQ SCH (08:55)
[2020-05-24 09:03] VITALS: BP 131/71
[2020-05-24] MEDS: LOPERAMIDE HCL 2 MG CAP PO PRN ×2 (10:14→12:20)
[2020-05-24] MEDS ORDERED: LACTOBACILLUS RHAMNOSUS GG 1 EACH CAP.SPRINK PO SCH (10:44)
--- NOTE | 2020-05-24 11:05 | NUR ---
DC PLAN DAUGHTER CALLED THIS MORNING, HOUSE CALLED THIS MORNING, RECEIVED EMAILS FROM CDA. FINAL CONCLUSION AT THIS TIME. [facility]A WOULD LIKE TO WAIT UNTIL 02 IS LOWER. PER DAUGHTER REQUEST ASKED [facility] TO RECONSIDER. STILL WAITING ON RESPONSE BACK. GAVE THEM TRENDS. CM WILL CONTINUE TO FOLLOW. LET DR. ESCOBAR AND CM DIRECTOR KNOW. Addendum: 05/24/20 at 1111 by BRIE GANT RN CM Amended: Links added.
--- NOTE | 2020-05-24 11:38 | NUR ---
SON SON CALLED WITH CONCERNS AND QUESTIONS. I answered all of his questions. He wanted to be called back with updates. I asked who the poc is. Per Daughter mom wanted her to take a step back and let her deal with transfer. CM DIRECTOR WENT INTO ROOM TO SPEAK TO PATIENT DIRECTLY. He did not agree with that said it was a family decision. Explained that if patient is able to make decisions then it is appropriate to give her updates. He wanted to speak to a male case manger because he had been very helpful in getting her gown changed. Explained we do not have a male case manger although we do have people that call for information or to give updates. He said no it was not a nurse or some one calling for info. It was a man returned case inspector. HE REQUESTED ANOTHER CASE MANGERS NUMBER GAVE HIM CM DIRECTOR TAMRA SOLIS. NOTIFIED CM DIRECTOR OF CONVERSATION. Addendum: 05/24/20 at 1140 by BRIE GANT RN CM Amended: Links added.
[2020-05-24] MEDS ORDERED: COMPOUND IV MISC 1 EACH IVSOLN MISC PRN (11:45)
[2020-05-24 12:00] VITALS: BP 131/51
--- NOTE | 2020-05-24 14:22 | NUR ---
[facility] ([facility]) Received message from patient's son, Ronn Fink ph: [phone] asked for call back. Called son back. Per Elian Fink, would prefer for patient to transfer to the [facility] today. Notified son that patient is not accepted yet, pending O2 weaning. Son asked that CM work with Dr. Rubio at the [facility] as well as Dr. Vizcaino. Informed son CM will follow up. Spoke to Dr. Rubio with the [facility] who states case has already been discussed w/ Dr. Vizcaino. Patient placed on NRB, and if able to tolerate, then patient will be accepted. Dr. Rubio asked for CM to follow up. Went into room to visit with patient. Patient on NRB with O2 Sat @ 87% and HR- 103. Reported this to Dr. Rubio. Dr. Rubio has accepted. Updated Dr. Vizcaino. Per Dr. Vizcaino, add O2 nasal cannula and patient can discharge. Orders entered. CM attempted to update nurse. Nurse out to lunch. CM to follow up. CD
--- NOTE | 2020-05-24 15:29 | NUR ---
CELIA PLAN GOT AN EMAIL THAT PATIENT IS ACCEPTED FROM DR. MEJIA. LET DR. ESCOBAR, NURSE, CM DIRECTOR. MOT AND EMS FORMS FILLED AND IN CHART. LET DR. MEJIA KNOW READY FOR REPORT TO BE CALLED. Addendum: 05/24/20 at 1532 by BRIE GANT RN CM Amended: Links added.
--- NOTE | 2020-05-24 16:37 | NUR ---
1530: Report given to JENARO Junior at this time. All questions answered and concerns addressed. 1630: Report given to EMS personnel, all questions answered. Pt transported to [facility] via [facility] in [facility], remains on 10 L NC and 15 L NRB. Pt tolerating well.
== END 2020-05-24 16:31 | disposition disaster alternative care site (69) | DRG 177 ==
LOC: EDH 18:46 → EDHIP 22:15 → 4BH 23:50 → 2AH 05-17 13:36
PROVIDERS: ADMIT Internal Medicine; ATTEND Internal Medicine
PROC: XW033E5 Introduction of Remdesivir Anti-infective into Peripheral Vein, Percutaneous Approach, New Technology Group 5 (ICD-10-PCS; principal; 2020-04-26)
PROC: XW13325 Transfusion of Convalescent Plasma (Nonautologous) into Peripheral Vein, Percutaneous Approach, New Technology Group 5 (ICD-10-PCS; 2020-04-28)
DX: U07.1 COVID-19 (principal); J96.01 Acute respiratory failure with hypoxia; J12.89 Other viral pneumonia; E87.1 Hypo-osmolality and hyponatremia; D72.828 Other elevated white blood cell count; J84.10 Pulmonary fibrosis, unspecified; F06.4 Anxiety disorder due to known physiological condition; D69.6 Thrombocytopenia, unspecified; F41.1 Generalized anxiety disorder; I10 Essential (primary) hypertension; E11.65 Type 2 diabetes mellitus with hyperglycemia; E78.5 Hyperlipidemia, unspecified; Z60.2 Problems related to living alone; Z90.710 Acquired absence of both cervix and uterus; Z90.49 Acquired absence of other specified parts of digestive tract; Z74.01 Bed confinement status; Z83.3 Family history of diabetes mellitus
CPT/HCPCS: 36415; 36430; 36600; 71045; 71250; 80048; 80053; 80076; 82565; 82728; 82803; 82947; 82948; 83605; 83615; 83880; 84145; 84484; 85025; 85378; 86140; 86900; 86901; 86927; 93005; 93306; 93356; 94760; 97039; A4606; G0378; J0696; J1100; J1650; J1815; J1940; J2405; J2920; J3490; J7050; J7608; U0003